=== PATIENT | male | born 1980 | race Caucasian/White ===

== ENCOUNTER 2018-01-30 19:22 | Emergency (ER) | payer SELFPAY ==
[~2018-01-30] VITALS: Ht 165.1 cm; Wt 86.2 kg
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
--- OUTSIDE RECORDS SUMMARY | 2018-01-30 19:30 | XMS REPORT ---
Author Author NAJMA BLANTON Organization [facility] Address [address] [place] [address] Care Team Providers Care Multifold Operator Name Role Phone NAJMA BLANTON Unavailable PROBLEMS Type Condition ICD9-CM Code [id number] Code Onset Dates Condition Status SNOMED Code Problem Opioid use disorder, severe, dependence F11.20 Active 73469927 Problem Anxiety disorder, unspecified F41.9 Active 937188527 Problem Ankylosing spondylitis M45.9 Active 8319569 Problem Ankylosing spondylitis of multiple sites in spine M45.0 Active 0857022 Problem Anxiety 300.00 Active 82411413 ALLERGIES No Information ENCOUNTERS Encounter Location Date Diagnosis [facility] [id number] [place] [address] 41653- 2846 Dec, [facility] [id number] [place] [address] 20324- 6979 Dec, [facility] [id number] [place] [address] 86221- 6407 Dec, Ankylosing spondylitis M45.9 [facility] [id number] [address]- 0355 Dec, [facility] [id number] [place] [address] 19868- 9185 Dec, [facility] [address] [place] [address] 62603- 7426 Dec, Ankylosing spondylitis M45.9 [facility] [address] [place] [address] 12459- 4456 November, Ankylosing spondylitis M45.9 [facility] [id number] [place] [address] 08679- 5588 November, Ankylosing spondylitis M45.9 ; Closed fracture of one rib of right side, initial encounter S22.31XA and Closed fracture of right wrist, initial encounter S62.101A [facility] [id number] [place] [address] 69081- 5600 November, [facility] [id number] [place] [address] 34109- 8147 Oct, [facility] [id number] [place] [address] 84202- 1724 Oct, Anxiety disorder, unspecified F41.9 ; Ankylosing spondylitis of multiple sites in spine M45.0 ; Ankylosing spondylitis M45.9 and Opioid use disorder, severe, dependence F11.20 [facility] [id number] [place] [address] 31496- 9626 Oct, Ankylosing spondylitis M45.9 and Anxiety disorder, unspecified F41.9 [facility] [id number] [place] [address] 05308- 8090 Oct, Ankylosing spondylitis of multiple sites in spine M45.0 [facility] [id number] [place] [address] 48863- 6368 Oct, Ankylosing spondylitis of multiple sites in spine M45.0 [facility] [id number] [place] [address] 63132- 5795 Oct, Ankylosing spondylitis of multiple sites in spine M45.0 [facility] [id number] [place] [address] 21459- 1641 Sep, [facility] [id number] [place] [address] 43535- 2286 Sep, Ankylosing spondylitis of multiple sites in spine M45.0 [facility] [id number] [place] [address] 42674- 4813 Aug, Ankylosing spondylitis of multiple sites in spine M45.0 [facility] [id number] [address]- 1680 Jul, Ankylosing spondylitis of multiple sites in spine M45.0 [facility] [id number] [address]- 8666 Jun, Ankylosing spondylitis of multiple sites in spine M45.0 [facility] [address] [address] 2546 15 May, 2017 Ankylosing spondylitis of multiple sites in spine M45.0 [facility] [id number] [address]- 6276 14 May, 2017 [facility] [id number] [place] [address] 189804- 1125 Apr, Ankylosing spondylitis of multiple sites in spine M45.0 and Cellulitis of leg, right L03.115 [facility] [id number] [address]- 4740 Apr, Ankylosing spondylitis of multiple sites in spine M45.0 [facility] [address] [address]- 8650 Mar, Ankylosing spondylitis of multiple sites in spine M45.0 [facility] [address] [address]- 2586 09 Apr, 2015 [facility] [address] [address]- 2379 08 Apr, 2015 Ankylosing spondylitis M45.9 [facility] [address] [address] 2546 07 Apr, 2015 Ankylosing spondylitis M45.9 [facility] [id number] [address]- 4216 Apr, [facility] [address] [address] 2546 30 Mar, 2015 [facility] [id number] [address]- 2546 Mar, [facility] [address] [facility] [id number] [address]- 9660 Mar, Ankylosing spondylitis 720.0 and Anxiety 300.00 [facility] [id number] [address]- 2546 Oct, [facility] [id number] [address] 2546 Oct, [facility] [address] [address]- 2546 Apr, [facility] [address] [address] 2546 Sep, [facility] [id number] [address]- 2546 Apr, IMMUNIZATIONS No Known Immunizations SOCIAL HISTORY Never Assessed REASON FOR VISIT Controlled Med Refill 07/11/17 PLAN OF CARE VITAL SIGNS MEDICATIONS Medication Instructions Dosage Frequency Start Date End Date Duration Status Morphine Sulfate ER 60 mg Orally every 12 hrs 1 tablet 12h Jun, 28 days Active Oxycodone HCl 20 mg Orally every 6 hrs 1 tablet as needed 6h Jun, 28 days Active RESULTS No Results PROCEDURES [...]
--- OUTSIDE RECORDS SUMMARY | 2018-01-30 19:30 | XMS REPORT ---
Author Author NAJMA BLANTON Organization [facility] Address [address] [place] [address] Care Team Providers Care Hypoid Gear Tester Name Role Phone NAJMA BLANTON Unavailable PROBLEMS Type Condition ICD9-CM Code WPN46-NC Code Onset Dates Condition Status SNOMED Code Problem Opioid use disorder, severe, dependence F11.20 Active 85835802 Problem Anxiety disorder, unspecified F41.9 Active 610979602 Problem Ankylosing spondylitis M45.9 Active 6236420 Problem Ankylosing spondylitis of multiple sites in spine M45.0 Active 7627850 Problem Anxiety 300.00 Active 76050210 ALLERGIES No Information ENCOUNTERS Encounter Location Date Diagnosis [place] [id number] [place] [address] 83695- 2952 Dec, [place] [id number] [place] [address] 56342- 0734 November, Ankylosing spondylitis M45.9 [place] [id number] [place] [address] 69487- 2638 November, Ankylosing spondylitis M45.9 ; Closed fracture of one rib of right side, initial encounter S22.31XA and Closed fracture of right wrist, initial encounter S62.101A [place] [address] [place] [address] 92923- 1535 November, [place] [address] [place] [address] 90933- 2004 Oct, [place] [id number] [place] [address] 33714- 2714 Oct, Anxiety disorder, unspecified F41.9 ; Ankylosing spondylitis of multiple sites in spine M45.0 ; Ankylosing spondylitis M45.9 and Opioid use disorder, severe, dependence F11.20 [facility] [address] [address]- 8603 18 Oct, 2017 Ankylosing spondylitis M45.9 and Anxiety disorder, unspecified F41.9 [facility] [address] [address]- 6776 06 Oct, 2017 Ankylosing spondylitis of multiple sites in spine M45.0 [facility] [id number] [place] [address] 19020- 4673 05 Oct, 2017 Ankylosing spondylitis of multiple sites in spine M45.0 [facility] [id number] [place] [address] 27587- 6171 Oct, Ankylosing spondylitis of multiple sites in spine M45.0 [facility] [id number] [place] [address] 48819- 5879 Sep, [facility] [id number] [place] [address] 90484- 1143 Sep, Ankylosing spondylitis of multiple sites in spine M45.0 [facility] [id number] [place] [address] 88736- 8732 Aug, Ankylosing spondylitis of multiple sites in spine M45.0 [facility] [address] [place] [address] 91910- 9225 Jul, Ankylosing spondylitis of multiple sites in spine M45.0 [facility] [id number] [place] [address] 55106- 3481 Jun, Ankylosing spondylitis of multiple sites in spine M45.0 [facility] [address] [address]- 2706 15 May, 2017 Ankylosing spondylitis of multiple sites in spine M45.0 [facility] [address] [address]- 8181 14 May, 2017 [facility] [id number] [place] [address] 55972- 2123 Apr, Ankylosing spondylitis of multiple sites in spine M45.0 and Cellulitis of leg, right L03.115 [facility] [id number] [place] [address] 87947- 2385 Apr, Ankylosing spondylitis of multiple sites in spine M45.0 [facility] [address] [address]- 2462 Mar, Ankylosing spondylitis of multiple sites in spine M45.0 [facility] [id number] [place] [address] 14573- 4150 Apr, [facility] [id number] [place] [address] 83758- 5308 Apr, Ankylosing spondylitis M45.9 [facility] [id number] [place] [address] 60277- 1485 Apr, Ankylosing spondylitis M45.9 [facility] [id number] [place] [address] 82267- 1918 Apr, [facility] [id number] [place] [address] 99314- 4683 30 Mar, 2015 [facility] [id number] [place] [address] 77702- 2589 28 Mar, 2015 [facility] [id number] [address]- 9864 25 Mar, 2015 Ankylosing spondylitis 720.0 and Anxiety 300.00 [facility] [id number] [address]- 0627 14 Oct, 2014 [facility] [id number] [place] [address] 30203- 3335 Oct, [facility] [id number] [address]- 0764 04 Apr, 2013 [facility] [id number] [place] [address] 53162- 6959 Sep, [facility] [address] [facility] [id number] [place] [address]- 1879 Apr, IMMUNIZATIONS No Known Immunizations SOCIAL HISTORY Never Assessed REASON FOR VISIT medication PLAN OF CARE VITAL SIGNS MEDICATIONS Unknown Medications RESULTS No Results PROCEDURES No Known procedures [...]
--- OUTSIDE RECORDS SUMMARY | 2018-01-30 19:30 | XMS REPORT ---
Author Author SPENCER LEDESMA [facility] eClinicalWorks Address Unknown Phone Unavailable Care Team Providers Care Cribber Name Role Phone SPENCER LEDESMA Unavailable Allergies No Known Allergies Problems Problem Type Condition Code Onset Dates Condition Status Problem Anxiety 300.00 Active Problem Ankylosing spondylitis M45.9 Active Problem Ankylosing spondylitis 720.0 Active Problem Other specified disease of hair and hair follicles 704.8 Active Medications No Known Medications Results No Known Results Summary Purpose eClinicalWorks Submission
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
--- OUTSIDE RECORDS SUMMARY | 2018-01-30 19:30 | XMS REPORT ---
Author Author SPENCER LEDESMA [facility] eClinicalWorks Address Unknown Phone Unavailable Care Team Providers Care Hide Grader Name Role Phone SPENCER LEDESMA Unavailable Allergies No Known Allergies Problems Problem Type Condition Code Onset Dates Condition Status Problem Anxiety 300.00 Active Problem Ankylosing spondylitis M45.9 Active Problem Ankylosing spondylitis 720.0 Active Problem Other specified disease of hair and hair follicles 704.8 Active Medications No Known Medications Results No Known Results Summary Purpose eClinicalWorks Submission
--- OUTSIDE RECORDS SUMMARY | 2018-01-30 19:30 | XMS REPORT ---
Author Author NAJMA BLANTON Organization [facility] Address [address] [place] [address] Care Team Providers Care Collection Coordinator Name Role Phone NAJMA BLANTON Unavailable PROBLEMS Type Condition ICD9-CM Code [id number] Code Onset Dates Condition Status SNOMED Code Problem Opioid use disorder, severe, dependence F11.20 Active 10931707 Problem Anxiety disorder, unspecified F41.9 Active 993263615 Problem Ankylosing spondylitis M45.9 Active 5830902 Problem Ankylosing spondylitis of multiple sites in spine M45.0 Active 3274084 Problem Anxiety 300.00 Active 06214241 ALLERGIES No Information ENCOUNTERS Encounter Location Date Diagnosis [facility] [id number] [place] [address]11[address] 5185 Jan, [facility] [id number] [place] [address] 80293- 2076 Dec, [facility] [id number] [place] [address] 65994- 7803 Dec, Ankylosing spondylitis M45.9 [facility] [id number] [address] 3337 Dec, [facility] [id number] [place] [address] 16623- 0608 15 Dec, 2017 [facility] [id number] [place] [address] 77420- 9353 14 Dec, 2017 Ankylosing spondylitis M45.9 [facility] [id number] [place] [address] 09115- 8257 08 Dec, 2017 Ankylosing spondylitis M45.9 [facility] [id number] [place] [address] 32855- 8219 Dec, [facility] [address], [place] [address]- 8197 Dec, [facility] [address] [place] [address] 74533- 4110 Dec, [facility] [address], [place] [address]- 7437 Dec, Ankylosing spondylitis M45.9 [facility] [id number] [address]- 2552 Dec, Ankylosing spondylitis M45.9 [facility] [address] [place] [address] 04859- 9410 Dec, Ankylosing spondylitis M45.9 [facility] [address] [place] [address] 48086- 7385 Dec, Ankylosing spondylitis M45.9 [facility] [address], [place] [address]- 7518 November, Ankylosing spondylitis M45.9 [facility] [address], [place] [address] 8664 November, Ankylosing spondylitis M45.9 ; Closed fracture of one rib of right side, initial encounter S22.31XA and Closed fracture of right wrist, initial encounter S62.101A [facility] [address], [place] [address]- 8103 November, [facility] [address], [place] [address]- 8199 Oct, [facility] [address], [place] [address]- 1879 Oct, Anxiety disorder, unspecified F41.9 ; Ankylosing spondylitis of multiple sites in spine M45.0 ; Ankylosing spondylitis M45.9 and Opioid use disorder, severe, dependence F11.20 [facility] [address], [place] [address]- 7888 18 Oct, 2017 Ankylosing spondylitis M45.9 and Anxiety disorder, unspecified F41.9 [facility] [address] [place] [address] 97131- 5093 06 Oct, 2017 Ankylosing spondylitis of multiple sites in spine M45.0 [facility] [address], [place] [address]- 8663 Oct, Ankylosing spondylitis of multiple sites in spine M45.0 [facility] [id number] [place] [address] 65010- 5479 Oct, Ankylosing spondylitis of multiple sites in spine M45.0 [facility] [id number] [place] [address] 78446- 6009 Sep, [facility] [id number] [place] [address] 83449- 9523 Sep, Ankylosing spondylitis of multiple sites in spine M45.0 [facility] [id number] [place] [address] 70762- 7547 Aug, Ankylosing spondylitis of multiple sites in spine M45.0 [facility] [address] [place] [address] 54303- 1044 Jul, Ankylosing spondylitis of multiple sites in spine M45.0 [facility] [address], [place] [address]- 7708 Jun, Ankylosing spondylitis of multiple sites in spine M45.0 [facility] [address], [place] [address]- 4385 15 May, 2017 Ankylosing spondylitis of multiple sites in spine M45.0 [facility] [id number] [address]- 4674 14 May, 2017 [facility] [address], [place] [address]- 3757 Apr, Ankylosing spondylitis of multiple sites in spine M45.0 and Cellulitis of leg, right L03.115 [facility] [address], [place] [address]- 8784 19 Apr, 2017 Ankylosing spondylitis of multiple sites in spine M45.0 [facility] [address], [place] [address]- 8976 22 Mar, 2017 Ankylosing spondylitis of multiple sites in spine M45.0 [facility] [id number] [place] [address] 88076- 3956 Apr, [facility] [id number] [place] [address] 53939- 1395 Apr, Ankylosing spondylitis M45.9 [facility] [id number] [place] [address] 25298- 5714 Apr, Ankylosing spondylitis M45.9 [facility] [id number] [place] [address] 66719- 7496 Apr, [facility] [id number], [place] [address]- 2175 30 Mar, 2015 [facility] [id number] [place] [address] 17953- 4656 28 Mar, 2015 [facility] [id number] [address]- 0576 25 Mar, 2015 Ankylosing spondylitis 720.0 and Anxiety 300.00 [facility] [address], [place] [address]- 3909 14 Oct, 2014 [facility] [address], [place] [address]- 2540 13 Oct, 2014 [facility] [id number] [place] [address] 87676- 7316 04 Apr, 2013 [facility] [id number], [place] [address]- 2548 05 Sep, 2011 [facility] [id number] [place] [address] 94090- 1005 Apr, IMMUNIZATIONS No Known Immunizations SOCIAL HISTORY Never Assessed REASON FOR VISIT Controlled Med Refill 09/05/17 PLAN OF CARE VITAL SIGNS MEDICATIONS Medication Instructions Dosage Frequency Start Date End Date Duration Status Morphine Sulfate ER 60 mg Orally every 12 hrs 1 tablet 12h Aug, 28 days Active Oxycodone HCl 20 mg Orally every 6 hrs 1 tablet as needed 6h Aug, 28 days Active RESULTS No Results PROCEDURES [...]
--- OUTSIDE RECORDS SUMMARY | 2018-01-30 19:30 | XMS REPORT ---
Author Author SPENCER LEDESMA [facility] eClinicalWorks Address Unknown Phone Unavailable Care Team Providers Care Electrical Automation Engineer Name Role Phone SPENCER LEDESMA Unavailable Allergies No Known Allergies Problems Problem Type Condition Code Onset Dates Condition Status Problem Ankylosing spondylitis M45.9 Active Assessment Ankylosing spondylitis M45.9 Active Problem Anxiety 300.00 Active Medications No Known Medications Results No Known Results Summary Purpose eClinicalWorks Submission
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
--- OUTSIDE RECORDS SUMMARY | 2018-01-30 19:31 | XMS REPORT ---
Author Author SPENCER LEDESMA [facility] eClinicalWorks Address Unknown Phone Unavailable Care Team Providers Care Engagement Manager Name Role Phone SPENCER LEDESMA Unavailable Allergies No Known Allergies Problems Problem Type Condition Code Onset Dates Condition Status Problem Ankylosing spondylitis M45.9 Active Problem Anxiety 300.00 Active Medications No Known Medications Results No Known Results Summary Purpose eClinicalWorks Submission
[2018-01-30] MEDS ORDERED: OXYC-529 (19:40)
[2018-01-30] MEDS ORDERED: METH500T7 (19:40)
[2018-01-30] MEDS ORDERED: AMOX1TAB12 (19:40)
[2018-01-30] MEDS ORDERED: CHLO473M (19:40)
[2018-01-30] MEDS ORDERED: NS IV 1000 ML 1,000 ML IV SCH (19:50)
[2018-01-30] MEDS ORDERED: fentaNYL INJECTION 100 MCG/2 ML AMP IVP STA (20:16)
[2018-01-30 20:25] LABS: BASOPHILS % (AUTO) 0 % (0-10); EOSINOPHILS # (AUTO) 0.2 10^3/uL (0.0-0.3); EOSINOPHILS % (AUTO) 1 % (0-10); HEMATOCRIT 33 % (40-54); HEMOGLOBIN 10.9 G/DL (13.3-17.7); LYMPHOCYTES # (AUTO) 2.9 X 10^3 (1.0-4.0); LYMPHOCYTES % (AUTO) 18 % (12-44); MEAN CORPUSCULAR HEMOGLOBIN 29 PG (25-34); MEAN CORPUSCULAR HGB CONC 33 G/DL (32-36); MEAN CORPUSCULAR VOLUME 87 FL (80-99); MEAN PLATELET VOLUME 10.1 FL (7.4-10.4); MONOCYTES # (AUTO) 1.3 X 10^3 (0.0-1.0); MONOCYTES % (AUTO) 8 % (0-12); NEUTROPHILS # (AUTO) 11.7 X 10^3 (1.8-7.8); NEUTROPHILS % (AUTO) 72 % (42-75); PLATELET COUNT 443 10^3/uL (130-400); RED BLOOD COUNT 3.77 10^6/uL (4.35-5.85); RED CELL DISTRIBUTION WIDTH 14.7 % (10.0-14.5); WHITE BLOOD COUNT 16.2 10^3/uL (4.3-11.0)
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
--- NOTE | 2018-01-30 20:41 | Diagnostic Imaging Report ---
INDICATION: Status post neck and jaw surgery, now with swelling in face. EXAMINATION: Frontal chest was obtained at 8:20 p.m. FINDINGS: Heart and mediastinal silhouette are normal in appearance. The lungs appear clear. There is no pneumothorax or pleural fluid. There are old right-sided rib fractures. Tracheostomy tube is seen with tip overlying the mid trachea. IMPRESSION: Tracheotomy tube tip overlies the mid trachea. No focal infiltrate, pneumothorax or pleural fluid. Old right-sided rib fractures are noted. Dictated by: Dictated on workstation # [id number]
[2018-01-30 20:49] LABS: BAND NEUTROPHILS 0 %; INR 1.1 (0.8-1.4); LYMPHOCYTES % (MANUAL) 22 %; NEUTROPHILS % (MANUAL) 72 %; PROTHROMBIN TIME PATIENT 14.2 SEC (12.2-14.7)
[2018-01-30 20:50] LABS: BASOPHILS % (MANUAL) 1 %; EOSINOPHILS % (MANUAL) 0 %; MONOCYTES % (MANUAL) 5 %; RBC MORPH NORMAL
[2018-01-30 21:02] LABS: ALANINE AMINOTRANSFERASE 30 U/L (0-55); ALBUMIN 3.9 GM/DL (3.2-4.5); ALKALINE PHOSPHATASE 89 U/L (40-136); BILIRUBIN,TOTAL 0.3 MG/DL (0.1-1.0); BUN/CREATININE RATIO 15; CALCIUM 9.2 MG/DL (8.5-10.1); CARBON DIOXIDE 24 MMOL/L (21-32); CHLORIDE 104 MMOL/L (98-107); CREATININE SERUM 0.78 MG/DL (0.60-1.30); GFR ESTIMATED > 60; GLUCOSE 82 MG/DL (70-105); SODIUM 140 MMOL/L (135-145); TOTAL PROTEIN 7.4 GM/DL (6.4-8.2)
[2018-01-30] MEDS ORDERED: cefTRIAXone INJECTION 2,000 MG in NS (IVPB) 50 ML IV ONE (21:15)
[2018-01-30] MEDS ORDERED: RX-TRIMETH/SULFA. 160-800 MG (BACTRIM DS) TAB PPK#2 PO STA (21:38)
[2018-01-30] MEDS ORDERED: RX-CLINDAMYCIN 150 MG (CLEOCIN) CAP PPK#4 PO STA (21:38)
[2018-01-30] MEDS ORDERED: CLIN300C11 PO (21:53)
[2018-01-30] MEDS ORDERED: SULF1TAB35 PO (21:53)
[2018-01-30 21:56] VITALS: BP 125/72
[2018-01-30] MEDS ORDERED: OXYC-464 PO (22:02)
== END 2018-01-30 22:03 | disposition home or self-care (01) ==
LOC: EDUNIT# 19:22 → ER 19:26
DX: T84.7XXA Infection and inflammatory reaction due to other internal orthopedic prosthetic devices, implants and grafts, initial encounter (principal); M45.9 Ankylosing spondylitis of unspecified sites in spine; F17.210 Nicotine dependence, cigarettes, uncomplicated; Z88.8 Allergy status to other drugs, medicaments and biological substances; Z87.828 Personal history of other (healed) physical injury and trauma
CPT/HCPCS: 36415; 71045; 80053; 83605; 85007; 85027; 85610; 85730; 86141; 87040; 87070; 87077; 87186; 87205; 96361; 96365; 96375

== ENCOUNTER 2018-02-18 15:56 | Emergency (ER) | payer SELFPAY ==
[~2018-02-18] VITALS: Ht 175.3 cm; Wt 90.7 kg
[~2018-02-18 15:56] MED LIST: AMOX1TAB12; CHLO473M; CLIN300C11 PO; METH500T7; OXYC-464 PO; OXYC-529; SULF1TAB35 PO
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
--- OUTSIDE RECORDS SUMMARY | 2018-02-18 16:01 | XMS REPORT ---
Author Author SPENCER LEDESMA [facility] eClinicalWorks Address Unknown Phone Unavailable Care Team Providers Care Plug Drill Operator Name Role Phone SPENCER LEDESMA Unavailable Allergies No Known Allergies Problems Problem Type Condition Code Onset Dates Condition Status Problem Ankylosing spondylitis M45.9 Active Assessment Ankylosing spondylitis M45.9 Active Problem Anxiety 300.00 Active Medications Medication Code System Code Instructions Start Date End Date Status Dosage Cyclobenzaprine HCl [facility] [address]-69 10 MG Orally qhs 1 tablet Baclofen [facility] [address]-56 10 MG Orally 2 times a day 1/2 tablet with food or milk Results No Known Results Summary Purpose eClinicalWorks Submission
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
[2018-02-18 16:36] VITALS: BP 133/95
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
== END 2018-02-18 16:36 | disposition left against medical advice (07) ==
LOC: EDUNIT# 15:56 → ER 15:57
DX: G89.29 Other chronic pain (principal); F19.10 Other psychoactive substance abuse, uncomplicated; Z88.6 Allergy status to analgesic agent; Z98.890 Other specified postprocedural states
CPT/HCPCS: 99281

== ENCOUNTER 2018-04-20 08:26 | Emergency (ER) | payer MEDICAID, OTHER ==
[~2018-04-20] VITALS: Ht 177.8 cm; Wt 86.2 kg
--- OUTSIDE RECORDS SUMMARY | 2018-04-20 08:31 | XMS REPORT ---
Author Author NAJMA BLANTON Organization [facility] Address [address] [place] [address] Care Team Providers Care Manager Managing Name Role Phone NAJMA BLANTON Unavailable PROBLEMS Type Condition ICD9-CM Code VTH12-XZ Code Onset Dates Condition Status SNOMED Code Problem Encounter for attention to tracheostomy Z43.0 Active 479887360 Problem Opioid use disorder, severe, dependence F11.20 Active 68120848 Problem Anxiety 300.00 Active 30975542 Problem Ankylosing spondylitis M45.9 Active 8493481 Problem Anxiety disorder, unspecified F41.9 Active 299000982 Problem Ankylosing spondylitis of multiple sites in spine M45.0 Active 3844464 ALLERGIES No Information ENCOUNTERS Encounter Location Date Diagnosis [facility] [id number] [place] [address] 55429- 6190 Jan, [facility] [id number] [place] [address] 41982- 2809 Jan, Encounter for attention to tracheostomy Z43.0 [facility] [id number] [place] [address] 97375- 5717 Jan, [facility] [id number] [place] [address] 89342 -4061 Jan, [facility] [id number] [place] [address] 11660- 2642 Jan, [facility] [address] [address]- 8047 Jan, [facility] [id number] [place] [address] 47001- 0182 Dec, [facility] [id number] [place] [address] 99623- 1285 Dec, Ankylosing spondylitis M45.9 [facility] [address] [facility] [id number], [place] [address]- 6616 Dec, [facility] [address] [facility] [id number], [place] [address]- 5136 Dec, [facility] [address] [facility] [id number], [place] [address]- 3436 Dec, Ankylosing spondylitis M45.9 [facility] [address] [facility] [id number], [place] [address]- 6656 Dec, Ankylosing spondylitis M45.9 [facility] [address] [facility] [id number] [place] [address]- 9706 Dec, [facility] [address] [facility] [id number], [place] [address]- 9566 Dec, [facility] [address], [place] [address]- 7726 Dec, [facility] [address] [facility] [id number], [place] [address]- 7367 Dec, Ankylosing spondylitis M45.9 [facility] [address] [facility] [id number], [place] [address]- 7226 Dec, Ankylosing spondylitis M45.9 [facility] [id number], [place] [address]- 3546 Dec, Ankylosing spondylitis M45.9 [facility] [address] [facility] [id number], [place] [address] 2546 Dec, Ankylosing spondylitis M45.9 [facility] [id number], [place] [address]- 3906 November, Ankylosing spondylitis M45.9 [facility] [address] [facility] [id number], [place] [address]- 3068 November, Ankylosing spondylitis M45.9 ; Closed fracture of one rib of right side, initial encounter S22.31XA and Closed fracture of right wrist, initial encounter S62.101A [facility] [address] [place] [address] 85744- 6985 November, [facility] [id number] [place] [address] 63904- 0454 Oct, [facility] [id number] [place] [address] 13939- 9099 Oct, Anxiety disorder, unspecified F41.9 ; Ankylosing spondylitis of multiple sites in spine M45.0 ; Ankylosing spondylitis M45.9 and Opioid use disorder, severe, dependence F11.20 [facility] [id number] [place] [address] 83804- 1938 Oct, Ankylosing spondylitis M45.9 and Anxiety disorder, unspecified F41.9 [facility] [id number] [place] [address] 22594- 3043 Oct, Ankylosing spondylitis of multiple sites in spine M45.0 [facility] [id number] [place] [address] 80137- 3174 Oct, Ankylosing spondylitis of multiple sites in spine M45.0 [facility] [id number] [place] [address] 90009- 2463 Oct, Ankylosing spondylitis of multiple sites in spine M45.0 [facility] [id number], [place] [address]- 0292 Sep, [facility] [id number] [place] [address] 32369- 2828 Sep, Ankylosing spondylitis of multiple sites in spine M45.0 [facility] [id number] [place] [address] 53564- 9040 Aug, Ankylosing spondylitis of multiple sites in spine M45.0 [facility] [id number] [place] [address] 52501- 2494 Jul, Ankylosing spondylitis of multiple sites in spine M45.0 [facility] [address], [place] [address]- 6406 13 Jun, 2017 Ankylosing spondylitis of multiple sites in spine M45.0 [facility] [address], [place] [address]- 4816 15 May, 2017 Ankylosing spondylitis of multiple sites in spine M45.0 [facility] [id number], [place] [address]- 7281 14 May, 2017 [facility] [address], [place] [address]- 0517 Apr, Ankylosing spondylitis of multiple sites in spine M45.0 and Cellulitis of leg, right L03.115 [facility] [address], [place] [address]- 0167 Apr, Ankylosing spondylitis of multiple sites in spine M45.0 [facility] [address], [place] [address]- 1923 22 Mar, 2017 Ankylosing spondylitis of multiple sites in spine M45.0 [facility] [address], [place] [address]- 3789 09 Apr, 2015 [facility] [address], [place] [address]- 8523 08 Apr, 2015 Ankylosing spondylitis M45.9 [facility] [address], [place] [address]- 9122 07 Apr, 2015 Ankylosing spondylitis M45.9 [facility] [address] 3526 Apr, [facility] [address] [address]76 30 Mar, 2015 [facility] [address], [place] [address]- 2676 28 Mar, 2015 [facility] [address], [place] [address]- 9707 Mar, Ankylosing spondylitis 720.0 and Anxiety 300.00 [facility] [address] [address]1 Oct, [facility] [address] 7443 Oct, [facility] [id number] [place] [address] 576702- 0638 Apr, [facility] [address], [place] [address]- 9366 Sep, [facility] [address] [address] [address]13 Apr, IMMUNIZATIONS No Known Immunizations SOCIAL HISTORY Never Assessed REASON FOR VISIT trach supplies PLAN OF CARE VITAL SIGNS MEDICATIONS Unknown [...]
--- OUTSIDE RECORDS SUMMARY | 2018-04-20 08:31 | XMS REPORT ---
Author Author ANSLEY EARL [facility] Address [address] [place] [address] Care Team Providers Care Legal Support Assistant Name Role Phone ANSLEY EARL Unavailable PROBLEMS Type Condition ICD9-CM Code VNO19-DO Code Onset Dates Condition Status SNOMED Code Problem Encounter for attention to tracheostomy Z43.0 Active 228221976 Problem Opioid use disorder, severe, dependence F11.20 Active 08626603 Problem Anxiety 300.00 Active 31495179 Problem Ankylosing spondylitis M45.9 Active 5427790 Problem Anxiety disorder, unspecified F41.9 Active 840157494 Problem Ankylosing spondylitis of multiple sites in spine M45.0 Active 0761508 ALLERGIES No Information ENCOUNTERS Encounter Location Date Diagnosis [facility] [place] [id number] [place] [address] 89375- 8727 Jan, [facility] [place] [id number] [place] [address] 52806- 2681 Jan, Encounter for attention to tracheostomy Z43.0 [facility] [place] [id number] [place] [address] 10662- 6013 Jan, [facility] [id number] [place] [address] 92832 -8759 Jan, [facility] [place] [id number] [place] [address] 00541- 5728 Jan, [facility] [place] [address] [address]- 5664 Jan, [facility] [place] [id number] [place] [address] 98361- 9002 Dec, [facility] [place] [id number] [place] [address] 61495- 0785 Dec, Ankylosing spondylitis M45.9 [facility] [place] [address] [facility] [id number], [place] [address]- 5126 Dec, [facility] [place] [address] [facility] [id number], [place] [address]- 6696 Dec, [facility] [place] [address] [facility] [id number], [place] [address]- 1506 Dec, Ankylosing spondylitis M45.9 [facility] [place] [address] [facility] [id number], [place] [address] 2546 Dec, Ankylosing spondylitis M45.9 [facility] [place] [address] [facility] [id number] [place] [address] 8646 Dec, [facility] [place] [address] [facility] [id number], [place] [address]- 6443 Dec, [facility] [place] [address] [id number], [place] [address]- 8899 Dec, [facility] [place] [address] [facility] [id number], [place] [address]- 2513 Dec, Ankylosing spondylitis M45.9 [facility] [place] [address] [facility] [id number], [place] [address]- 7042 Dec, Ankylosing spondylitis M45.9 [facility] [place] [address] [facility] [id number], [place] [address]- 5684 Dec, Ankylosing spondylitis M45.9 [facility] [place] [address] [facility] [id number], [place] [address]- 9289 Dec, Ankylosing spondylitis M45.9 [facility] [place] [address] [facility] [id number], [place] [address]- 7741 November, Ankylosing spondylitis M45.9 [facility] [place] [address] [facility] [id number], [place] [address]- 9824 November, Ankylosing spondylitis M45.9 ; Closed fracture of one rib of right side, initial encounter S22.31XA and Closed fracture of right wrist, initial encounter S62.101A [facility] [place] [id number] [place] [address] 71102- 6662 November, [facility] [place] [id number] [place] [address] 39591- 6904 Oct, [facility] [place] [id number] [place] [address] 21147- 4603 Oct, Anxiety disorder, unspecified F41.9 ; Ankylosing spondylitis of multiple sites in spine M45.0 ; Ankylosing spondylitis M45.9 and Opioid use disorder, severe, dependence F11.20 [facility] [place] [id number] [place] [address] 22445- 1303 Oct, Ankylosing spondylitis M45.9 and Anxiety disorder, unspecified F41.9 [facility] [place] [id number] [place] [address] 51303- 7095 Oct, Ankylosing spondylitis of multiple sites in spine M45.0 [facility] [place] [id number] [place] [address] 90191- 9879 Oct, Ankylosing spondylitis of multiple sites in spine M45.0 [facility] [place] [id number] [place] [address] 60696- 0430 Oct, Ankylosing spondylitis of multiple sites in spine M45.0 [facility] [place] [address]65[address], [place] [address]- 3186 Sep, [facility] [place] [id number] [place] [address] 08067- 2180 Sep, Ankylosing spondylitis of multiple sites in spine M45.0 [facility] [place] [id number] [place] [address] 55594- 8774 Aug, Ankylosing spondylitis of multiple sites in spine M45.0 [facility] [place] [id number] [place] [address] 82095- 3715 Jul, Ankylosing spondylitis of multiple sites in spine M45.0 [facility] [place] [address]65100[place], [place] [address]- 3208 13 Jun, 2017 Ankylosing spondylitis of multiple sites in spine M45.0 [facility] [place] [address]65[address], [place] [address]- 7726 15 May, 2017 Ankylosing spondylitis of multiple sites in spine M45.0 [facility] [place] [id number] [address]- 9669 14 May, 2017 [facility] [place] [id number] [address]- 5296 Apr, Ankylosing spondylitis of multiple sites in spine M45.0 and Cellulitis of leg, right L03.115 [facility] [place] [address]65100[place], [place] [address]- 5890 Apr, Ankylosing spondylitis of multiple sites in spine M45.0 [facility] [place] [address]65[address], [place] [address]- 7536 Mar, Ankylosing spondylitis of multiple sites in spine M45.0 [facility] [place] [address]65[address], [place] [address]- 7099 09 Apr, 2015 [facility] [place] [address], [place] [address]- 7474 08 Apr, 2015 Ankylosing spondylitis M45.9 [facility] [place] [address], [place] [address]- 1130 07 Apr, 2015 Ankylosing spondylitis M45.9 [facility] [place] [id number] 4146 Apr, [facility] [place] [id number] 2863 30 Mar, 2015 [facility] [place] [id number], [place] [address]- 5581 28 Mar, 2015 [facility] [place] [id number] 3275 Mar, Ankylosing spondylitis 720.0 and Anxiety 300.00 [facility] [place] [id number] 2856 Oct, [facility] [place] [id number]- 7782 Oct, [facility] [place] [address] [id number], [place] [address]- 4100 Apr, [facility] [place] [id number], [place] [address]- 1399 Sep, [facility] [place] [id number], [place] [address]- 5678 Apr, IMMUNIZATIONS No Known Immunizations SOCIAL HISTORY Never Assessed REASON FOR VISIT Medical Care Update/Review PLAN OF CARE VITAL SIGNS MEDICATIONS Unknown [...]
--- OUTSIDE RECORDS SUMMARY | 2018-04-20 08:31 | XMS REPORT ---
Author Author NAJMA BLANTON Organization [facility] Address [address] [place] [address] Care Team Providers Care Job Placement Officer Name Role Phone NAJMA BLANTON Unavailable PROBLEMS Type Condition ICD9-CM Code GKW24-BR Code Onset Dates Condition Status SNOMED Code Problem Encounter for attention to tracheostomy Z43.0 Active 643888735 Problem Opioid use disorder, severe, dependence F11.20 Active 46549318 Problem Anxiety 300.00 Active 54291304 Problem Ankylosing spondylitis M45.9 Active 9116000 Problem Anxiety disorder, unspecified F41.9 Active 549629719 Problem Ankylosing spondylitis of multiple sites in spine M45.0 Active 4739535 ALLERGIES No Information ENCOUNTERS Encounter Location Date Diagnosis [facility] [id number] [place] [address] 83713- 6659 Jan, [facility] [id number] [place] [address] 04719- 2693 Jan, Encounter for attention to tracheostomy Z43.0 [facility] [id number] [place] [address] 43094- 2348 Jan, [facility] [id number] [place] [address] 03807 -3567 Jan, [facility] [id number] [place] [address] 71084- 6846 Jan, [facility] [address] 98884- 1382 Jan, [facility] [id number] [place] [address] 18246- 1439 Dec, [facility] [id number] [place] [address] 52584- 8049 Dec, Ankylosing spondylitis M45.9 [facility] [address] [facility] [id number], [place] [address]- 1976 Dec, [facility] [address] [facility] [id number], [place] [address]- 2956 Dec, [facility] [address] [facility] [id number], [place] [address]- 5026 Dec, Ankylosing spondylitis M45.9 [facility] [address] [facility] [id number], [place] [address]- 3706 Dec, Ankylosing spondylitis M45.9 [facility] [address] [facility] [id number] [place] [address]- 1146 Dec, [facility] [address] [facility] [id number], [place] [address]- 2466 Dec, [facility] [address], [place] [address]- 8906 Dec, [facility] [address] [facility] [id number], [place] [address]- 3451 Dec, Ankylosing spondylitis M45.9 [facility] [address] [facility] [id number], [place] [address]- 1716 Dec, Ankylosing spondylitis M45.9 [facility] [address] [id number], [place] [address]- 3736 Dec, Ankylosing spondylitis M45.9 [facility] [address] [facility] [id number], [place] [address] 2546 Dec, Ankylosing spondylitis M45.9 [facility] [address] [id number], [place] [address]- 4786 November, Ankylosing spondylitis M45.9 [facility] [address] [facility] [id number], [place] [address]- 0147 November, Ankylosing spondylitis M45.9 ; Closed fracture of one rib of right side, initial encounter S22.31XA and Closed fracture of right wrist, initial encounter S62.101A [facility] [address] [place] [address] 39181- 9154 November, [facility] [id number] [place] [address] 41022- 3707 Oct, [facility] [id number] [place] [address] 12951- 8910 Oct, Anxiety disorder, unspecified F41.9 ; Ankylosing spondylitis of multiple sites in spine M45.0 ; Ankylosing spondylitis M45.9 and Opioid use disorder, severe, dependence F11.20 [facility] [id number] [place] [address] 82211- 9702 Oct, Ankylosing spondylitis M45.9 and Anxiety disorder, unspecified F41.9 [facility] [id number] [place] [address] 34320- 8915 Oct, Ankylosing spondylitis of multiple sites in spine M45.0 [facility] [id number] [place] [address] 36278- 7422 Oct, Ankylosing spondylitis of multiple sites in spine M45.0 [facility] [id number] [place] [address] 03467- 0394 Oct, Ankylosing spondylitis of multiple sites in spine M45.0 [facility] [address] [id number], [place] [address]- 4578 Sep, [facility] [id number] [place] [address] 56765- 7570 Sep, Ankylosing spondylitis of multiple sites in spine M45.0 [facility] [id number] [place] [address] 76344- 5441 Aug, Ankylosing spondylitis of multiple sites in spine M45.0 [facility] [id number] [place] [address] 12476- 4339 Jul, Ankylosing spondylitis of multiple sites in spine M45.0 [facility] [address], [place] [address]- 7156 13 Jun, 2017 Ankylosing spondylitis of multiple sites in spine M45.0 [facility] [address], [place] [address]- 7916 15 May, 2017 Ankylosing spondylitis of multiple sites in spine M45.0 [facility] [id number] [address]- 7415 14 May, 2017 [facility] [address], [place] [address]- 0331 Apr, Ankylosing spondylitis of multiple sites in spine M45.0 and Cellulitis of leg, right L03.115 [facility] [address], [place] [address]- 3432 Apr, Ankylosing spondylitis of multiple sites in spine M45.0 [facility] [address], [place] [address]- 9203 22 Mar, 2017 Ankylosing spondylitis of multiple sites in spine M45.0 [facility] [address], [place] [address]- 9759 09 Apr, 2015 [facility] [address], [place] [address]- 9887 08 Apr, 2015 Ankylosing spondylitis M45.9 [facility] [address], [place] [address]- 7155 07 Apr, 2015 Ankylosing spondylitis M45.9 [facility] [address]- 0126 Apr, [facility] [address]- 3686 30 Mar, 2015 [facility] [address], [place] [address]- 2696 28 Mar, 2015 [facility] [address], [place] [address]- 9279 Mar, Ankylosing spondylitis 720.0 and Anxiety 300.00 [facility] [address], [place] [address]- 8090 Oct, [facility] [address], [place] [address]- 0191 Oct, [facility] [id number] [place] [address] 044202- 6960 Apr, [facility] [address], [place] [address]- 2870 Sep, [facility] [address] [address]- 8710 Apr, IMMUNIZATIONS No Known Immunizations SOCIAL HISTORY Never Assessed REASON FOR VISIT fyi PLAN OF CARE VITAL SIGNS MEDICATIONS Unknown [...]
--- OUTSIDE RECORDS SUMMARY | 2018-04-20 08:31 | XMS REPORT ---
Author Author NAJMA BLANTON Organization [facility] Address [address] [place] [address] Care Team Providers Care Mannequin Mounter Name Role Phone NAJMA BLANTON Unavailable PROBLEMS Type Condition ICD9-CM Code OSO95-SO Code Onset Dates Condition Status SNOMED Code Problem Encounter for attention to tracheostomy Z43.0 Active 533577828 Problem Opioid use disorder, severe, dependence F11.20 Active 85144156 Problem Anxiety 300.00 Active 97202328 Problem Ankylosing spondylitis M45.9 Active 8960303 Problem Anxiety disorder, unspecified F41.9 Active 716237347 Problem Ankylosing spondylitis of multiple sites in spine M45.0 Active 8381308 ALLERGIES No Information ENCOUNTERS Encounter Location Date Diagnosis [facility] [id number] [place] [address] 78501- 3185 Jan, [facility] [id number] [place] [address] 81541- 0914 Jan, Encounter for attention to tracheostomy Z43.0 [facility] [id number] [place] [address] 59425- 7436 Jan, [facility] [id number] [place] [address] 61836 -8363 Jan, [facility] [id number] [place] [address] 87215- 9430 Jan, [facility] [address] [address]- 1631 Jan, [facility] [id number] [place] [address] 94267- 2925 Dec, [facility] [id number] [place] [address] 74579- 6578 Dec, Ankylosing spondylitis M45.9 [facility] [address] [facility] [id number], [place] [address] 4906 Dec, [facility] [address] [facility] [id number], [place] [address]- 7706 Dec, [facility] [address] [facility] [id number], [place] [address]- 6096 Dec, Ankylosing spondylitis M45.9 [facility] [address] [facility] [id number], [place] [address]- 6906 Dec, Ankylosing spondylitis M45.9 [facility] [address] [facility] [id number] [place] [address]- 1346 Dec, [facility] [address] [facility] [id number], [place] [address]- 7226 Dec, [facility] [address] [address]- 4[address] Dec, [facility] [address] [facility] [id number], [place] [address]- 7717 Dec, Ankylosing spondylitis M45.9 [facility] [address] [facility] [id number], [place] [address]- 5576 Dec, Ankylosing spondylitis M45.9 [facility] [id number] [address]- 0046 Dec, Ankylosing spondylitis M45.9 [facility] [address] [facility] [id number], [place] [address] 2546 Dec, Ankylosing spondylitis M45.9 [facility] [address] [id number] [address]- 1796 November, Ankylosing spondylitis M45.9 [facility] [address] [facility] [id number], [place] [address]- 2200 November, Ankylosing spondylitis M45.9 ; Closed fracture of one rib of right side, initial encounter S22.31XA and Closed fracture of right wrist, initial encounter S62.101A [facility] [address] [place] [address] 72483- 3445 November, [facility] [id number] [place] [address] 75879- 6170 Oct, [facility] [id number] [place] [address] 59478- 4832 Oct, Anxiety disorder, unspecified F41.9 ; Ankylosing spondylitis of multiple sites in spine M45.0 ; Ankylosing spondylitis M45.9 and Opioid use disorder, severe, dependence F11.20 [facility] [id number] [place] [address] 00179- 0843 Oct, Ankylosing spondylitis M45.9 and Anxiety disorder, unspecified F41.9 [facility] [id number] [place] [address] 03566- 7160 Oct, Ankylosing spondylitis of multiple sites in spine M45.0 [facility] [id number] [place] [address] 77063- 9691 Oct, Ankylosing spondylitis of multiple sites in spine M45.0 [facility] [id number] [place] [address] 10796- 4022 Oct, Ankylosing spondylitis of multiple sites in spine M45.0 [facility] [id number] [address]- 9386 Sep, [facility] [id number] [place] [address] 50213- 7900 Sep, Ankylosing spondylitis of multiple sites in spine M45.0 [facility] [id number] [place] [address] 38633- 3856 Aug, Ankylosing spondylitis of multiple sites in spine M45.0 [facility] [id number] [place] [address] 18312- 1673 Jul, Ankylosing spondylitis of multiple sites in spine M45.0 [facility] [address], [place] [address]- 0246 13 Jun, 2017 Ankylosing spondylitis of multiple sites in spine M45.0 [facility] [address], [place] [address]- 2626 15 May, 2017 Ankylosing spondylitis of multiple sites in spine M45.0 [facility] [id number] [address]- 8111 14 May, 2017 [facility] [address], [place] [address]- 1646 Apr, Ankylosing spondylitis of multiple sites in spine M45.0 and Cellulitis of leg, right L03.115 [facility] [address], [place] [address]- 9557 Apr, Ankylosing spondylitis of multiple sites in spine M45.0 [facility] [address], [place] [address]- 7768 22 Mar, 2017 Ankylosing spondylitis of multiple sites in spine M45.0 [facility] [address], [place] [address]- 7307 09 Apr, 2015 [facility] [address], [place] [address]- 0482 08 Apr, 2015 Ankylosing spondylitis M45.9 [facility] [address], [place] [address]- 8253 07 Apr, 2015 Ankylosing spondylitis M45.9 [facility] [address] 9136 Apr, [facility] [address] 3966 30 Mar, 2015 [facility] [address], [place] [address]- 7926 28 Mar, 2015 [facility] [address], [place] [address]- 3406 Mar, Ankylosing spondylitis 720.0 and Anxiety 300.00 [facility] [address], [place] [address]- 8406 Oct, [facility] [id number], [place] [address]- 6473 Oct, [facility] [address], [place] [address]- 5303 Apr, [facility] [address], [place] [address]- 4363 Sep, [facility] [address], [place] [address]- 2824 Apr, IMMUNIZATIONS No Known Immunizations SOCIAL HISTORY Never Assessed REASON FOR VISIT appt PLAN OF CARE VITAL SIGNS MEDICATIONS Medication Instructions Dosage Frequency Start Date End Date Duration Status Clindamycin HCl 300 MG Orally every 8 hrs 1 capsule 8h Jan,Jan 07 days Active Bactrim DS 800-160 MG Orally Twice a day 1 tablet 12h Jan,Jan 07 days Active RESULTS No Results PROCEDURES No [...]
--- OUTSIDE RECORDS SUMMARY | 2018-04-20 08:31 | XMS REPORT ---
Author Author NAJMA BLANTON Organization [facility] Address [address] [place] [address] Care Team Providers Care Press Operator Name Role Phone NAJMA BLANTON Unavailable PROBLEMS Type Condition ICD9-CM Code YTY26-QC Code Onset Dates Condition Status SNOMED Code Problem Encounter for attention to tracheostomy Z43.0 Active 287816517 Problem Opioid use disorder, severe, dependence F11.20 Active 88320375 Problem Anxiety 300.00 Active 33073194 Problem Ankylosing spondylitis M45.9 Active 9737313 Problem Anxiety disorder, unspecified F41.9 Active 800326721 Problem Ankylosing spondylitis of multiple sites in spine M45.0 Active 7791593 ALLERGIES No Information ENCOUNTERS Encounter Location Date Diagnosis [facility] [id number] [place] [address] 65862- 4744 Jan, [facility] [id number] [place] [address] 66454- 9477 Jan, Encounter for attention to tracheostomy Z43.0 [facility] [id number] [place] [address] 12096- 1951 Jan, [facility] [id number] [place] [address] 90020 -3566 Jan, [facility] [id number] [place] [address] 23195- 4558 Jan, [facility] [address] 31705- 8981 Jan, [facility] [id number] [place] [address] 59176- 3603 Dec, [facility] [id number] [place] [address] 80354- 3696 Dec, Ankylosing spondylitis M45.9 [facility] [address] [facility] [id number] [place] [address]- 6166 Dec, [facility] [address] [facility] [id number] [place] [address]- 1146 Dec, [facility] [address] [facility] [id number] [place] [address]- 3316 Dec, Ankylosing spondylitis M45.9 [facility] [address] [facility] [id number] [address]- 5866 Dec, Ankylosing spondylitis M45.9 [facility] [address] [facility] [id number] [place] [address]- 9946 Dec, [facility] [address] [facility] [id number] [place] [address]- 0466 Dec, [facility] [address] [address]- 5656 Dec, [facility] [address] [facility] [id number] [place] [address]- 7653 Dec, Ankylosing spondylitis M45.9 [facility] [address] [facility] [id number] [place] [address]- 0666 Dec, Ankylosing spondylitis M45.9 [facility] [address] [id number] [address]- 6076 Dec, Ankylosing spondylitis M45.9 [facility] [address] [facility] [id number] [place] [address] 2546 Dec, Ankylosing spondylitis M45.9 [facility] [address] [id number] [address]- 9556 November, Ankylosing spondylitis M45.9 [facility] [address] [facility] [id number] [place] [address]- 1038 November, Ankylosing spondylitis M45.9 ; Closed fracture of one rib of right side, initial encounter S22.31XA and Closed fracture of right wrist, initial encounter S62.101A [facility] [address] [place] [address] 24541- 9856 November, [facility] [id number] [place] [address] 66672- 7339 Oct, [facility] [id number] [place] [address] 07799- 2435 Oct, Anxiety disorder, unspecified F41.9 ; Ankylosing spondylitis of multiple sites in spine M45.0 ; Ankylosing spondylitis M45.9 and Opioid use disorder, severe, dependence F11.20 [facility] [id number] [place] [address] 44183- 7784 Oct, Ankylosing spondylitis M45.9 and Anxiety disorder, unspecified F41.9 [facility] [id number] [place] [address] 62357- 9169 Oct, Ankylosing spondylitis of multiple sites in spine M45.0 [facility] [id number] [place] [address] 34712- 8917 Oct, Ankylosing spondylitis of multiple sites in spine M45.0 [facility] [id number] [place] [address] 59665- 5555 Oct, Ankylosing spondylitis of multiple sites in spine M45.0 [facility] [address] [id number] [address]- 6303 Sep, [facility] [id number] [place] [address] 52626- 2073 Sep, Ankylosing spondylitis of multiple sites in spine M45.0 [facility] [id number] [place] [address] 51574- 7872 Aug, Ankylosing spondylitis of multiple sites in spine M45.0 [facility] [id number] [place] [address] 70621- 6209 Jul, Ankylosing spondylitis of multiple sites in spine M45.0 [facility] [address] [address]- 8736 13 Jun, 2017 Ankylosing spondylitis of multiple sites in spine M45.0 [facility] [address] [address]- 3806 15 May, 2017 Ankylosing spondylitis of multiple sites in spine M45.0 [facility] [address] [id number] [address]- 9970 14 May, 2017 [facility] [address] [address]- 2189 Apr, Ankylosing spondylitis of multiple sites in spine M45.0 and Cellulitis of leg, right L03.115 [facility] [address] [address]- 9499 Apr, Ankylosing spondylitis of multiple sites in spine M45.0 [facility] [address] [address]- 1029 22 Mar, 2017 Ankylosing spondylitis of multiple sites in spine M45.0 [facility] [address] [address]- 7383 09 Apr, 2015 [facility] [address] [address]- 0797 08 Apr, 2015 Ankylosing spondylitis M45.9 [facility] [address] [address]- 0525 07 Apr, 2015 Ankylosing spondylitis M45.9 [facility] [address] 4486 Apr, [facility] [address] 1686 30 Mar, 2015 [facility] [address] [address]- 5116 28 Mar, 2015 [facility] [address] [address]- 1323 Mar, Ankylosing spondylitis 720.0 and Anxiety 300.00 [facility] [address] [address]- 8052 Oct, [facility] [address] [address]- 6516 Oct, [facility] [id number] [place] [address] 616131- 5852 Apr, [facility] [address] [address]- 2128 Sep, [facility] [address]- 1348 Apr, IMMUNIZATIONS No Known Immunizations SOCIAL HISTORY Never Assessed REASON FOR VISIT KU tapering controlled meds PLAN OF CARE VITAL SIGNS MEDICATIONS Unknown [...]
--- OUTSIDE RECORDS SUMMARY | 2018-04-20 08:31 | XMS REPORT ---
Author Author NAJMA BLANTON Organization [facility] Address [address] [place] [address] Care Team Providers Care Pipe Insulator Helper Name Role Phone NAJMA BLANTON Unavailable PROBLEMS Type Condition ICD9-CM Code JUW19-IC Code Onset Dates Condition Status SNOMED Code Problem Encounter for attention to tracheostomy Z43.0 Active 604934653 Problem Opioid use disorder, severe, dependence F11.20 Active 49929453 Problem Anxiety 300.00 Active 03719442 Problem Ankylosing spondylitis M45.9 Active 6709599 Problem Anxiety disorder, unspecified F41.9 Active 024243154 Problem Ankylosing spondylitis of multiple sites in spine M45.0 Active 1406792 ALLERGIES No Information ENCOUNTERS Encounter Location Date Diagnosis [facility] [id number] [place] [address] 97053- 0552 Jan, [facility] [id number] [place] [address] 73991- 3737 Jan, Encounter for attention to tracheostomy Z43.0 [facility] [id number] [place] [address] 27904- 1162 Jan, [facility] [id number] [place] [address] 74332 -8691 Jan, [facility] [id number] [place] [address] 86089- 6317 Jan, [facility] [address] 68037- 0283 Jan, [facility] [id number] [place] [address] 62001- 5057 Dec, [facility] [id number] [place] [address] 97359- 4755 Dec, Ankylosing spondylitis M45.9 [facility] [address] [facility] [id number], [place] [address]- 5906 Dec, [facility] [address] [facility] [id number], [place] [address]- 1626 Dec, [facility] [address] [facility] [id number], [place] [address]- 7416 Dec, Ankylosing spondylitis M45.9 [facility] [address] [facility] [id number] [address]- 1636 Dec, Ankylosing spondylitis M45.9 [facility] [address] [facility] [id number] [place] [address]- 7046 Dec, [facility] [address] [facility] [id number], [place] [address]- 9736 Dec, [facility] [address] [address]- 0506 Dec, [facility] [address] [facility] [id number], [place] [address]- 5182 Dec, Ankylosing spondylitis M45.9 [facility] [address] [facility] [id number], [place] [address]- 2096 Dec, Ankylosing spondylitis M45.9 [facility] [address] [id number] [address]- 3046 Dec, Ankylosing spondylitis M45.9 [facility] [address] [facility] [id number], [place] [address] 2546 Dec, Ankylosing spondylitis M45.9 [facility] [address] [id number] [address]- 6716 November, Ankylosing spondylitis M45.9 [facility] [address] [facility] [id number], [place] [address]- 1302 November, Ankylosing spondylitis M45.9 ; Closed fracture of one rib of right side, initial encounter S22.31XA and Closed fracture of right wrist, initial encounter S62.101A [facility] [address] [place] [address] 48197- 4724 November, [facility] [id number] [place] [address] 30612- 0017 Oct, [facility] [id number] [place] [address] 15206- 9029 Oct, Anxiety disorder, unspecified F41.9 ; Ankylosing spondylitis of multiple sites in spine M45.0 ; Ankylosing spondylitis M45.9 and Opioid use disorder, severe, dependence F11.20 [facility] [id number] [place] [address] 96878- 1681 Oct, Ankylosing spondylitis M45.9 and Anxiety disorder, unspecified F41.9 [facility] [id number] [place] [address] 26629- 7514 Oct, Ankylosing spondylitis of multiple sites in spine M45.0 [facility] [id number] [place] [address] 70830- 9444 Oct, Ankylosing spondylitis of multiple sites in spine M45.0 [facility] [id number] [place] [address] 75413- 9848 Oct, Ankylosing spondylitis of multiple sites in spine M45.0 [facility] [address] [id number] [address]- 7561 Sep, [facility] [id number] [place] [address] 88326- 9289 Sep, Ankylosing spondylitis of multiple sites in spine M45.0 [facility] [id number] [place] [address] 72615- 1523 Aug, Ankylosing spondylitis of multiple sites in spine M45.0 [facility] [id number] [place] [address] 39714- 7695 Jul, Ankylosing spondylitis of multiple sites in spine M45.0 [facility] [address] [address]- 4766 13 Jun, 2017 Ankylosing spondylitis of multiple sites in spine M45.0 [facility] [address] [address]- 8456 15 May, 2017 Ankylosing spondylitis of multiple sites in spine M45.0 [facility] [address] [id number] [address]- 5629 14 May, 2017 [facility] [address], [place] [address]- 5272 Apr, Ankylosing spondylitis of multiple sites in spine M45.0 and Cellulitis of leg, right L03.115 [facility] [address] [address]- 6842 Apr, Ankylosing spondylitis of multiple sites in spine M45.0 [facility] [address], [place] [address]- 4346 22 Mar, 2017 Ankylosing spondylitis of multiple sites in spine M45.0 [facility] [address] [address]- 1772 09 Apr, 2015 [facility] [id number], [place] [address] 08 Apr, 2015 Ankylosing spondylitis M45.9 [facility] [id number], [place] [address] 07 Apr, 2015 Ankylosing spondylitis M45.9 [facility] [id number] [address] Apr, [facility] [id number] [address] 30 Mar, 2015 [facility] [id number], [place] [address] 28 Mar, 2015 [facility] [id number] [address] Mar, Ankylosing spondylitis 720.0 and Anxiety 300.00 [facility] [id number], [place] [address] Oct, [facility] [id number] [address] Oct, [facility] [id number] [place] [id number] Apr, [facility] [id number] [address] Sep, [facility] [id number] [id number] Apr, IMMUNIZATIONS No Known Immunizations SOCIAL HISTORY Never Assessed REASON FOR VISIT PLAN OF CARE VITAL SIGNS MEDICATIONS Unknown [...]
--- OUTSIDE RECORDS SUMMARY | 2018-04-20 08:32 | XMS REPORT ---
Author Author ALEXSANDER LAINEZ Organization [facility] Address [address] [place] [address] Care Team Providers Care Able Bodied Seaman Name Role Phone ALEXSANDER LAINEZ Unavailable PROBLEMS Type Condition ICD9-CM Code LKG55-VO Code Onset Dates Condition Status SNOMED Code Problem Encounter for attention to tracheostomy Z43.0 Active 992759930 Problem Opioid use disorder, severe, dependence F11.20 Active 01316484 Problem Anxiety 300.00 Active 95907038 Problem Ankylosing spondylitis M45.9 Active 9528626 Problem Anxiety disorder, unspecified F41.9 Active 900104083 Problem Ankylosing spondylitis of multiple sites in spine M45.0 Active 4027171 ALLERGIES No Information ENCOUNTERS Encounter Location Date Diagnosis [facility] [id number] [place] [address] 38847- 0452 Jan, [facility] [id number] [place] [address] 86550- 0710 Jan, Encounter for attention to tracheostomy Z43.0 [facility] [id number] [place] [address] 26054- 5451 Jan, [facility] [id number] [place] [address] 86040 -7027 Jan, [facility] [id number] [place] [address] 09346- 0448 Jan, [facility] [id number] [place] [address] 86167- 9921 Jan, [facility] [id number] [place] [address] 92300- 0416 Dec, [facility] [id number] [place] [address] 84777- 9642 Dec, Ankylosing spondylitis M45.9 [facility] [address] [facility] [id number], [place] [address]- 7106 Dec, [facility] [address] [facility] [id number], [place] [address]- 3626 Dec, [facility] [address] [facility] [id number], [place] [address]- 9806 Dec, Ankylosing spondylitis M45.9 [facility] [address] [facility] [id number], [place] [address]- 4516 Dec, Ankylosing spondylitis M45.9 [facility] [address] [facility] [id number] [place] [address]- 8946 Dec, [facility] [address] [facility] [id number], [place] [address]- 8456 Dec, [facility] [address] [facility] [id number], [place] [address]- 9728 Dec, [facility] [address] [facility] [id number], [place] [address]- 9666 Dec, Ankylosing spondylitis M45.9 [facility] [address] [facility] [id number], [place] [address]- 2140 Dec, Ankylosing spondylitis M45.9 [facility] [address] [facility] [id number], [place] [address]- 4016 Dec, Ankylosing spondylitis M45.9 [facility] [address] [facility] [id number], [place] [address]- 2677 Dec, Ankylosing spondylitis M45.9 [facility] [address] [facility] [id number], [place] [address]- 2080 November, Ankylosing spondylitis M45.9 [facility] [address] [facility] [id number], [place] [address]- 5270 November, Ankylosing spondylitis M45.9 ; Closed fracture of one rib of right side, initial encounter S22.31XA and Closed fracture of right wrist, initial encounter S62.101A [facility] [id number] [place] [address] 03626- 1688 November, [facility] [id number] [place] [address] 19578- 4295 Oct, [facility] [id number] [place] [address] 22955- 6663 Oct, Anxiety disorder, unspecified F41.9 ; Ankylosing spondylitis of multiple sites in spine M45.0 ; Ankylosing spondylitis M45.9 and Opioid use disorder, severe, dependence F11.20 [facility] [id number] [place] [address] 70162- 1900 Oct, Ankylosing spondylitis M45.9 and Anxiety disorder, unspecified F41.9 [facility] [id number] [place] [address] 49533- 9355 Oct, Ankylosing spondylitis of multiple sites in spine M45.0 [facility] [id number] [place] [address] 04799- 3188 Oct, Ankylosing spondylitis of multiple sites in spine M45.0 [facility] [address] [place] [address] 00652- 8320 Oct, Ankylosing spondylitis of multiple sites in spine M45.0 [facility] [address] [place] [address] 08650- 0062 Sep, [facility] [address] [place] [address] 51427- 8784 Sep, Ankylosing spondylitis of multiple sites in spine M45.0 [facility] [address] [place] [address] 83244- 5631 Aug, Ankylosing spondylitis of multiple sites in spine M45.0 [facility] [id number] [place] [address] 31416- 4293 Jul, Ankylosing spondylitis of multiple sites in spine M45.0 [facility] [address] [address]- 8736 Jun, Ankylosing spondylitis of multiple sites in spine M45.0 [facility] [id number] [place] [address] 10049- 6976 15 May, 2017 Ankylosing spondylitis of multiple sites in spine M45.0 [facility] [id number] [place] [address] 12221- 1248 14 May, 2017 [facility] [id number] [place] [address] 66076- 5062 Apr, Ankylosing spondylitis of multiple sites in spine M45.0 and Cellulitis of leg, right L03.115 [facility] [id number] [place] [address] 84212- 7659 Apr, Ankylosing spondylitis of multiple sites in spine M45.0 [facility] [id number] [place] [address] 94968- 7509 22 Mar, 2017 Ankylosing spondylitis of multiple sites in spine M45.0 [facility] [id number] [place] [address] 05914- 7218 09 Apr, 2015 [facility] [id number] [address]- 0913 08 Apr, 2015 Ankylosing spondylitis M45.9 [facility] [id number] [place] [address] 49846- 2239 07 Apr, 2015 Ankylosing spondylitis M45.9 [facility] [id number] [place] [address] 715310- 8536 Apr, [facility] [id number] [place] [address] [id number]- 8676 30 Mar, 2015 [facility] [id number] [address]- 8916 28 Mar, 2015 [facility] [address] [id number] [address]- 7126 Mar, Ankylosing spondylitis 720.0 and Anxiety 300.00 [facility] [address] [address] 3419 Oct, [facility] [address] 6636 Oct, [facility] [id number] [place] [address] 20768- 0715 Apr, [facility] [id number] [place] [address] 01758- 3479 Sep, [facility] [address] [place] [address] 80320- 7181 Apr, IMMUNIZATIONS No Known Immunizations SOCIAL HISTORY Never Assessed REASON FOR VISIT taper #4 01/09/18 PLAN OF CARE VITAL SIGNS MEDICATIONS Medication Instructions Dosage Frequency Start Date End Date Duration Status Percocet 10-325 MG Orally 4 times a day 2 tablet 6h Dec, 07 days Active MS Contin 15 mg 1 tablet in the morning, 1 tablet in the evening Dec 07 days Active RESULTS No Results PROCEDURES [...]
--- OUTSIDE RECORDS SUMMARY | 2018-04-20 08:32 | XMS REPORT ---
Author Author NAJMA BLANTON Organization [facility] Address [address] [place] [address] Care Team Providers Care Tube Building Machine Operator Name Role Phone NAJMA BLANTON Unavailable PROBLEMS Type Condition ICD9-CM Code ECB17-VY Code Onset Dates Condition Status SNOMED Code Problem Encounter for attention to tracheostomy Z43.0 Active 150521990 Problem Opioid use disorder, severe, dependence F11.20 Active 02977623 Problem Anxiety 300.00 Active 64746419 Problem Ankylosing spondylitis M45.9 Active 7476511 Problem Anxiety disorder, unspecified F41.9 Active 186029278 Problem Ankylosing spondylitis of multiple sites in spine M45.0 Active 5831661 ALLERGIES No Information ENCOUNTERS Encounter Location Date Diagnosis [facility] [id number] [place] [address] 89627- 1771 Jan, [facility] [id number] [place] [address] 31599- 4933 Jan, Encounter for attention to tracheostomy Z43.0 [facility] [id number] [place] [address] 69444- 8572 Jan, [facility] [id number] [place] [address] 38609 -0468 Jan, [facility] [id number] [place] [address] 46986- 8235 Jan, [facility] [address] 62055- 7573 Jan, [facility] [id number] [place] [address] 46602- 4663 Dec, [facility] [id number] [place] [address] 69924- 8077 Dec, Ankylosing spondylitis M45.9 [facility] [address] [facility] [id number] [address]- 4486 Dec, [facility] [address] [facility] [id number] [place] [address]- 9786 Dec, [facility] [address] [facility] [id number] [place] [address]- 3626 Dec, Ankylosing spondylitis M45.9 [facility] [address] [facility] [id number] [place] [address]- 6476 Dec, Ankylosing spondylitis M45.9 [facility] [address] [facility] [id number] [place] [address]- 5786 Dec, [facility] [address] [facility] [id number] [address]- 9836 Dec, [facility] [address] [address]- 5836 Dec, [facility] [address] [facility] [id number] [place] [address]- 5710 Dec, Ankylosing spondylitis M45.9 [facility] [address] [facility] [id number] [place] [address]- 6276 Dec, Ankylosing spondylitis M45.9 [facility] [address] [id number] [address]- 3486 Dec, Ankylosing spondylitis M45.9 [facility] [address] [facility] [id number] [place] [address] 2546 Dec, Ankylosing spondylitis M45.9 [facility] [address] [id number] [address]- 6426 November, Ankylosing spondylitis M45.9 [facility] [address] [facility] [id number] [address]- 2840 November, Ankylosing spondylitis M45.9 ; Closed fracture of one rib of right side, initial encounter S22.31XA and Closed fracture of right wrist, initial encounter S62.101A [facility] [address] [place] [address] 06587- 6370 November, [facility] [id number] [place] [address] 23767- 5942 Oct, [facility] [id number] [place] [address] 20587- 4506 Oct, Anxiety disorder, unspecified F41.9 ; Ankylosing spondylitis of multiple sites in spine M45.0 ; Ankylosing spondylitis M45.9 and Opioid use disorder, severe, dependence F11.20 [facility] [id number] [place] [address] 48689- 8329 Oct, Ankylosing spondylitis M45.9 and Anxiety disorder, unspecified F41.9 [facility] [id number] [place] [address] 37931- 4440 Oct, Ankylosing spondylitis of multiple sites in spine M45.0 [facility] [id number] [place] [address] 89083- 9007 Oct, Ankylosing spondylitis of multiple sites in spine M45.0 [facility] [id number] [place] [address] 70997- 5067 Oct, Ankylosing spondylitis of multiple sites in spine M45.0 [facility] [address] [id number] [address]- 8869 Sep, [facility] [id number] [place] [address] 97901- 4402 Sep, Ankylosing spondylitis of multiple sites in spine M45.0 [facility] [id number] [place] [address] 14092- 5424 Aug, Ankylosing spondylitis of multiple sites in spine M45.0 [facility] [id number] [place] [address] 36737- 0980 Jul, Ankylosing spondylitis of multiple sites in spine M45.0 [facility] [address]65100[place] [address]- 4926 13 Jun, 2017 Ankylosing spondylitis of multiple sites in spine M45.0 [facility] [address]65100[place] [address]- 9676 15 May, 2017 Ankylosing spondylitis of multiple sites in spine M45.0 [facility] [address] [id number] [address]- 5269 14 May, 2017 [facility] [address]100[place] [address]- 4959 Apr, Ankylosing spondylitis of multiple sites in spine M45.0 and Cellulitis of leg, right L03.115 [facility] [address] [address]- 3392 Apr, Ankylosing spondylitis of multiple sites in spine M45.0 [facility] [address] [address]- 7612 22 Mar, 2017 Ankylosing spondylitis of multiple sites in spine M45.0 [facility] [address]65100[place] [address]- 5440 09 Apr, 2015 [facility] [address]100[place] [address]- 1780 08 Apr, 2015 Ankylosing spondylitis M45.9 [facility] [address] [address]- 6434 07 Apr, 2015 Ankylosing spondylitis M45.9 [facility] [address] 9836 Apr, [facility] [address]- 1566 30 Mar, 2015 [facility] [address]65100[place] [address]- 5906 28 Mar, 2015 [facility] [address] [address]- 8065 Mar, Ankylosing spondylitis 720.0 and Anxiety 300.00 [facility] [address] [address]- 1217 Oct, [facility] [address] 1122 Oct, [facility] [id number] [place] [address] 38642- 1774 Apr, [facility] [address] [address]- 5765 Sep, [facility] [address] [address]- 9420 Apr, IMMUNIZATIONS No Known Immunizations SOCIAL HISTORY Never Assessed REASON FOR VISIT Controlled Med Refill inquiry PLAN OF CARE VITAL SIGNS MEDICATIONS Unknown [...]
--- OUTSIDE RECORDS SUMMARY | 2018-04-20 08:32 | XMS REPORT ---
Author Author NAJMA BLANTON Organization [facility] Address [address] [place] [address] Care Team Providers Care General Worker Name Role Phone NAJMA BLANTON Unavailable PROBLEMS Type Condition ICD9-CM Code ZRR19-RN Code Onset Dates Condition Status SNOMED Code Problem Encounter for attention to tracheostomy Z43.0 Active 128131823 Problem Opioid use disorder, severe, dependence F11.20 Active 30002474 Problem Anxiety 300.00 Active 36357509 Problem Ankylosing spondylitis M45.9 Active 6918794 Problem Anxiety disorder, unspecified F41.9 Active 094526498 Problem Ankylosing spondylitis of multiple sites in spine M45.0 Active 0035759 ALLERGIES No Information ENCOUNTERS Encounter Location Date Diagnosis [facility] [id number] [place] [address] 68461- 4049 Jan, [facility] [id number] [place] [address] 28946- 2984 Jan, Encounter for attention to tracheostomy Z43.0 [facility] [id number] [place] [address] 81046- 9442 Jan, [facility] [id number] [place] [address] 22984 -9918 Jan, [facility] [id number] [place] [address] 98858- 5821 Jan, [facility] [address] 79175- 0176 Jan, [facility] [id number] [place] [address] 90308- 0654 Dec, [facility] [id number] [place] [address] 91128- 8405 Dec, Ankylosing spondylitis M45.9 [facility] [address] [facility] [id number] [place] [address]- 4496 Dec, [facility] [address] [facility] [id number] [place] [address]- 7726 Dec, [facility] [address] [facility] [id number] [place] [address]- 7836 Dec, Ankylosing spondylitis M45.9 [facility] [address] [facility] [id number] [place] [address]- 8556 Dec, Ankylosing spondylitis M45.9 [facility] [address] [facility] [id number] [place] [address]- 9806 Dec, [facility] [address] [facility] [id number] [place] [address]- 6166 Dec, [facility] [address] [address]- 7686 Dec, [facility] [address] [facility] [id number] [place] [address]- 8555 Dec, Ankylosing spondylitis M45.9 [facility] [address] [facility] [id number] [place] [address]- 4646 Dec, Ankylosing spondylitis M45.9 [facility] [address] [id number] [address]- 3486 Dec, Ankylosing spondylitis M45.9 [facility] [address] [facility] [id number] [place] [address] 2546 Dec, Ankylosing spondylitis M45.9 [facility] [address] [id number] [address]- 8446 November, Ankylosing spondylitis M45.9 [facility] [address] [facility] [id number] [place] [address]- 2086 November, Ankylosing spondylitis M45.9 ; Closed fracture of one rib of right side, initial encounter S22.31XA and Closed fracture of right wrist, initial encounter S62.101A [facility] [address] [place] [address] 46775- 9528 November, [facility] [id number] [place] [address] 76682- 9986 Oct, [facility] [id number] [place] [address] 20056- 7600 Oct, Anxiety disorder, unspecified F41.9 ; Ankylosing spondylitis of multiple sites in spine M45.0 ; Ankylosing spondylitis M45.9 and Opioid use disorder, severe, dependence F11.20 [facility] [id number] [place] [address] 38494- 0275 Oct, Ankylosing spondylitis M45.9 and Anxiety disorder, unspecified F41.9 [facility] [id number] [place] [address] 11755- 4472 Oct, Ankylosing spondylitis of multiple sites in spine M45.0 [facility] [id number] [place] [address] 54549- 3710 Oct, Ankylosing spondylitis of multiple sites in spine M45.0 [facility] [id number] [place] [address] 80741- 1699 Oct, Ankylosing spondylitis of multiple sites in spine M45.0 [facility] [address] [id number] [address]- 7721 Sep, [facility] [id number] [place] [address] 66215- 2681 Sep, Ankylosing spondylitis of multiple sites in spine M45.0 [facility] [id number] [place] [address] 78380- 5724 Aug, Ankylosing spondylitis of multiple sites in spine M45.0 [facility] [id number] [place] [address] 89533- 0276 Jul, Ankylosing spondylitis of multiple sites in spine M45.0 [facility] [address] [address]- 2126 13 Jun, 2017 Ankylosing spondylitis of multiple sites in spine M45.0 [facility] [address] [address]- 3426 15 May, 2017 Ankylosing spondylitis of multiple sites in spine M45.0 [facility] [address] [id number] [address]- 1769 14 May, 2017 [facility] [address] [address]- 4850 Apr, Ankylosing spondylitis of multiple sites in spine M45.0 and Cellulitis of leg, right L03.115 [facility] [address] [address]- 6386 Apr, Ankylosing spondylitis of multiple sites in spine M45.0 [facility] [id number] [address] 22 Mar, 2017 Ankylosing spondylitis of multiple sites in spine M45.0 [facility] [id number] [address] 09 Apr, 2015 [facility] [id number] [address] 08 Apr, 2015 Ankylosing spondylitis M45.9 [facility] [id number] [address] 07 Apr, 2015 Ankylosing spondylitis M45.9 [facility] [id number] [address] Apr, [facility] [id number] [address] 30 Mar, 2015 [facility] [id number] [address] 28 Mar, 2015 [facility] [id number] [address] Mar, Ankylosing spondylitis 720.0 and Anxiety 300.00 [facility] [id number] [address] Oct, [facility] [id number] [address] Oct, [facility] [id number] [address] Apr, [facility] [id number] [address] Sep, [facility] [id number] [address] Apr, IMMUNIZATIONS No Known Immunizations SOCIAL HISTORY Never Assessed REASON FOR VISIT taper #4 01/16/18 PLAN OF CARE VITAL SIGNS MEDICATIONS Medication Instructions Dosage Frequency Start Date End Date Duration Status Percocet 10-325 MG Orally 4 times a day 2 tablet 6h Dec, 07 days Active MS Contin 15 mg 1 tablet in am 1 tablet in pm Dec, 07 days Active RESULTS No Results PROCEDURES [...]
--- OUTSIDE RECORDS SUMMARY | 2018-04-20 08:32 | XMS REPORT ---
Author Author NAJMA BLANTON Organization [facility] Address [address] [place] [address] Care Team Providers Care Overlock Sleeve Setter Name Role Phone NAJMA BLANTON Unavailable PROBLEMS Type Condition ICD9-CM Code [id number] Code Onset Dates Condition Status SNOMED Code Problem Encounter for attention to tracheostomy Z43.0 Active 106463551 Problem Opioid use disorder, severe, dependence F11.20 Active 42568627 Problem Anxiety 300.00 Active 67698966 Problem Ankylosing spondylitis M45.9 Active 5141517 Problem Anxiety disorder, unspecified F41.9 Active 293890394 Problem Ankylosing spondylitis of multiple sites in spine M45.0 Active 7791864 ALLERGIES No Information ENCOUNTERS Encounter Location Date Diagnosis [facility] [id number] [place] [address] 10799- 2352 Jan, [facility] [id number] [place] [address] 52218- 4079 Jan, Encounter for attention to tracheostomy Z43.0 [facility] [id number] [place] [address] 54070- 7469 Jan, [facility] [id number] [place] [address] 73446 -9849 Jan, [facility] [id number] [place] [address] 82223- 1338 Jan, [facility] [address] 13107- 4966 Jan, [facility] [id number] [place] [address] 20165- 8756 Dec, [facility] [id number] [place] [address] 18136- 2686 Dec, Ankylosing spondylitis M45.9 [facility] [address] [facility] [id number], [place] [address] 8826 Dec, [facility] [address] [facility] [id number], [place] [address] 0846 Dec, [facility] [address] [facility] [id number], [place] [address]- 0996 Dec, Ankylosing spondylitis M45.9 [facility] [address] [facility] [id number], [place] [address] 7536 Dec, Ankylosing spondylitis M45.9 [facility] [address] [facility] [id number] [place] [address]- 0086 Dec, [facility] [address] [facility] [id number], [place] [address]- 0246 Dec, [facility] [address] [address] 9146 Dec, [facility] [address] [facility] [id number], [place] [address]- 4457 Dec, Ankylosing spondylitis M45.9 [facility] [address] [facility] [id number], [place] [address]- 2506 Dec, Ankylosing spondylitis M45.9 [facility] [address] [id number] [address]- 4746 Dec, Ankylosing spondylitis M45.9 [facility] [address] [facility] [id number], [place] [address] 2546 Dec, Ankylosing spondylitis M45.9 [facility] [address] [id number] [address]- 0956 November, Ankylosing spondylitis M45.9 [facility] [address] [facility] [id number], [place] [address]- 1527 November, Ankylosing spondylitis M45.9 ; Closed fracture of one rib of right side, initial encounter S22.31XA and Closed fracture of right wrist, initial encounter S62.101A [facility] [address] [place] [address] 33451- 3973 November, [facility] [id number] [place] [address] 89571- 2001 Oct, [facility] [id number] [place] [address] 21853- 5372 Oct, Anxiety disorder, unspecified F41.9 ; Ankylosing spondylitis of multiple sites in spine M45.0 ; Ankylosing spondylitis M45.9 and Opioid use disorder, severe, dependence F11.20 [facility] [id number] [place] [address] 97410- 9203 Oct, Ankylosing spondylitis M45.9 and Anxiety disorder, unspecified F41.9 [facility] [id number] [place] [address] 87587- 1288 Oct, Ankylosing spondylitis of multiple sites in spine M45.0 [facility] [id number] [place] [address] 92403- 5092 Oct, Ankylosing spondylitis of multiple sites in spine M45.0 [facility] [id number] [place] [address] 89084- 1170 Oct, Ankylosing spondylitis of multiple sites in spine M45.0 [facility] [address] [id number] [address]- 1162 Sep, [facility] [id number] [place] [address] 19412- 8098 Sep, Ankylosing spondylitis of multiple sites in spine M45.0 [facility] [id number] [place] [address] 79299- 9376 Aug, Ankylosing spondylitis of multiple sites in spine M45.0 [facility] [id number] [place] [address] 14152- 1046 Jul, Ankylosing spondylitis of multiple sites in spine M45.0 [facility] [address] [address]- 2696 13 Jun, 2017 Ankylosing spondylitis of multiple sites in spine M45.0 [facility] [address] [address]- 3826 15 May, 2017 Ankylosing spondylitis of multiple sites in spine M45.0 [facility] [id number] [address]- 6825 14 May, 2017 [facility] [address], [place] [address]- 5301 Apr, Ankylosing spondylitis of multiple sites in spine M45.0 and Cellulitis of leg, right L03.115 [facility] [address], [place] [address]- 7305 Apr, Ankylosing spondylitis of multiple sites in spine M45.0 [facility] [address], [place] [address]- 4410 22 Mar, 2017 Ankylosing spondylitis of multiple sites in spine M45.0 [facility] [address], [place] [address] 09 Apr, 2015 [facility] [address], [place] [address]- 6896 08 Apr, 2015 Ankylosing spondylitis M45.9 [facility] [address], [place] [address]- 4429 07 Apr, 2015 Ankylosing spondylitis M45.9 [facility] [address] 5556 Apr, [facility] [address] 5546 30 Mar, 2015 [facility] [address], [place] [address]- 1656 28 Mar, 2015 [facility] [address], [place] [address]- 6568 Mar, Ankylosing spondylitis 720.0 and Anxiety 300.00 [facility] [address], [place] [address]- 7196 Oct, [facility] [address], [place] [address]- 1351 Oct, [facility] [id number] [place] [address] 93206- 6820 Apr, [facility] [address], [place] [address]- 0498 Sep, [facility] [address] [address]- 7214 Apr, IMMUNIZATIONS No Known Immunizations SOCIAL HISTORY Never Assessed REASON FOR VISIT medication concerns// PLAN OF CARE VITAL SIGNS MEDICATIONS Unknown [...]
--- OUTSIDE RECORDS SUMMARY | 2018-04-20 08:32 | XMS REPORT ---
Author Author NAJMA BLANTON Organization [facility] Address [address] [place] [address] Care Team Providers Care Geospatial Imagery Intelligence Analyst Name Role Phone NAJMA BLANTON Unavailable PROBLEMS Type Condition ICD9-CM Code ACH46-AQ Code Onset Dates Condition Status SNOMED Code Problem Encounter for attention to tracheostomy Z43.0 Active 619655883 Problem Opioid use disorder, severe, dependence F11.20 Active 32057634 Problem Anxiety 300.00 Active 80246751 Problem Ankylosing spondylitis M45.9 Active 4725357 Problem Anxiety disorder, unspecified F41.9 Active 238678312 Problem Ankylosing spondylitis of multiple sites in spine M45.0 Active 8830258 ALLERGIES No Information ENCOUNTERS Encounter Location Date Diagnosis [facility] [id number] [place] [address] 86488- 5967 Jan, [facility] [id number] [place] [address] 47198- 6737 Jan, Encounter for attention to tracheostomy Z43.0 [facility] [id number] [place] [address] 16691- 5778 Jan, [facility] [id number] [place] [address] 68711 -0856 Jan, [facility] [id number] [place] [address] 44577- 4777 Jan, [facility] [address] 04757- 6425 Jan, [facility] [id number] [place] [address] 70703- 0981 Dec, [facility] [id number] [place] [address] 77646- 1729 Dec, Ankylosing spondylitis M45.9 [facility] [address] [facility] [id number] [address]- 9826 Dec, [facility] [address] [facility] [id number] [place] [address]- 3356 Dec, [facility] [address] [facility] [id number] [place] [address]- 0056 Dec, Ankylosing spondylitis M45.9 [facility] [address] [facility] [id number] [place] [address]- 7336 Dec, Ankylosing spondylitis M45.9 [facility] [address] [facility] [id number] [place] [address]- 0266 Dec, [facility] [address] [facility] [id number] [place] [address]- 4326 Dec, [facility] [address] [address]- 0336 Dec, [facility] [address] [facility] [id number] [place] [address]- 0481 Dec, Ankylosing spondylitis M45.9 [facility] [address] [facility] [id number] [place] [address]- 9206 Dec, Ankylosing spondylitis M45.9 [facility] [address] [id number] [address]- 2296 Dec, Ankylosing spondylitis M45.9 [facility] [address] [facility] [id number] [place] [address] 2546 Dec, Ankylosing spondylitis M45.9 [facility] [address] [id number] [address]- 0806 November, Ankylosing spondylitis M45.9 [facility] [address] [facility] [id number] [place] [address]- 9388 November, Ankylosing spondylitis M45.9 ; Closed fracture of one rib of right side, initial encounter S22.31XA and Closed fracture of right wrist, initial encounter S62.101A [facility] [address] [place] [address] 49701- 8591 November, [facility] [id number] [place] [address] 99092- 0245 Oct, [facility] [id number] [place] [address] 50516- 2531 Oct, Anxiety disorder, unspecified F41.9 ; Ankylosing spondylitis of multiple sites in spine M45.0 ; Ankylosing spondylitis M45.9 and Opioid use disorder, severe, dependence F11.20 [facility] [id number] [place] [address] 20282- 3466 Oct, Ankylosing spondylitis M45.9 and Anxiety disorder, unspecified F41.9 [facility] [id number] [place] [address] 18847- 7330 Oct, Ankylosing spondylitis of multiple sites in spine M45.0 [facility] [id number] [place] [address] 61279- 8440 Oct, Ankylosing spondylitis of multiple sites in spine M45.0 [facility] [id number] [place] [address] 13548- 8605 Oct, Ankylosing spondylitis of multiple sites in spine M45.0 [facility] [address] [id number] [address]- 2000 Sep, [facility] [id number] [place] [address] 52546- 2686 Sep, Ankylosing spondylitis of multiple sites in spine M45.0 [facility] [id number] [place] [address] 07898- 9011 Aug, Ankylosing spondylitis of multiple sites in spine M45.0 [facility] [id number] [place] [address] 55934- 9737 Jul, Ankylosing spondylitis of multiple sites in spine M45.0 [facility] [address] [address]- 7546 13 Jun, 2017 Ankylosing spondylitis of multiple sites in spine M45.0 [facility] [address] [address]- 0486 15 May, 2017 Ankylosing spondylitis of multiple sites in spine M45.0 [facility] [id number] [address]- 0810 14 May, 2017 [facility] [address] [address]- 1534 Apr, Ankylosing spondylitis of multiple sites in spine M45.0 and Cellulitis of leg, right L03.115 [facility] [address] [address]- 6203 Apr, Ankylosing spondylitis of multiple sites in spine M45.0 [facility] [address] [address]- 9551 22 Mar, 2017 Ankylosing spondylitis of multiple sites in spine M45.0 [facility] [address] [address]- 8573 09 Apr, 2015 [facility] [address] [address]- 9906 08 Apr, 2015 Ankylosing spondylitis M45.9 [facility] [address] [address]- 1316 07 Apr, 2015 Ankylosing spondylitis M45.9 [facility] [address] 6276 Apr, [facility] [address] 2726 30 Mar, 2015 [facility] [address] [address]- 1736 28 Mar, 2015 [facility] [address] [address] 2546 Mar, Ankylosing spondylitis 720.0 and Anxiety 300.00 [facility] [address] [address]- 3164 Oct, [facility] [address] [id number] [address]- 2763 Oct, [facility] [id number] [address]- 3598 Apr, [facility] [address] [address]- 5432 Sep, [facility] [address] [address]- 8242 Apr, IMMUNIZATIONS No Known Immunizations SOCIAL HISTORY Never Assessed REASON FOR VISIT taper #5 01/23/18 PLAN OF CARE VITAL SIGNS MEDICATIONS Medication Instructions Dosage Frequency Start Date End Date Duration Status MS Contin 15 mg 1 tablet in am Dec, Jan, 07 days Active Percocet 10-325 MG Orally 4 times a day 2 tablet 6h Dec, 07 days Active RESULTS No Results [...]
--- OUTSIDE RECORDS SUMMARY | 2018-04-20 08:32 | XMS REPORT ---
Author Author NAJMA BLANTON Organization [facility] Address [address] [place] [address] Care Team Providers Care Merchant Seaman Name Role Phone NAJMA BLANTON Unavailable PROBLEMS Type Condition ICD9-CM Code [id number] Code Onset Dates Condition Status SNOMED Code Problem Encounter for attention to tracheostomy Z43.0 Active 882481815 Problem Opioid use disorder, severe, dependence F11.20 Active 10849877 Problem Anxiety 300.00 Active 16037478 Problem Ankylosing spondylitis M45.9 Active 7858568 Problem Anxiety disorder, unspecified F41.9 Active 562020684 Problem Ankylosing spondylitis of multiple sites in spine M45.0 Active 5154158 ALLERGIES No Information ENCOUNTERS Encounter Location Date Diagnosis [facility] [id number] [place] [address] 66859- 8755 Jan, [facility] [id number] [place] [address] 71009- 7642 Jan, Encounter for attention to tracheostomy Z43.0 [facility] [id number] [place] [address] 47769- 1084 Jan, [facility] [id number] [place] [address] 13450 -0490 Jan, [facility] [id number] [place] [address] 42060- 2150 Jan, [facility] [address] 24805- 9455 Jan, [facility] [id number] [place] [address] 38045- 2418 Dec, [facility] [id number] [place] [address] 69364- 1529 Dec, Ankylosing spondylitis M45.9 [facility] [address] [facility] [id number] [address] 4146 Dec, [facility] [address] [facility] [id number] [address]- 7376 Dec, [facility] [address] [facility] [id number] [address]- 2216 Dec, Ankylosing spondylitis M45.9 [facility] [address] [facility] [id number] [address]- 3906 Dec, Ankylosing spondylitis M45.9 [facility] [address] [facility] [id number] [place] [address] 8116 Dec, [facility] [address] [facility] [id number] [place] [address]- 1756 Dec, [facility] [address] [address]- 3296 Dec, [facility] [address] [facility] [id number] [address]- 2084 Dec, Ankylosing spondylitis M45.9 [facility] [address] [facility] [id number] [place] [address]- 1566 Dec, Ankylosing spondylitis M45.9 [facility] [address] [id number] [address]- 6296 Dec, Ankylosing spondylitis M45.9 [facility] [address] [facility] [id number] [place] [address] 2546 Dec, Ankylosing spondylitis M45.9 [facility] [address] [id number] [address]- 5836 November, Ankylosing spondylitis M45.9 [facility] [address] [facility] [id number] [place] [address]- [address] November, Ankylosing spondylitis M45.9 ; Closed fracture of one rib of right side, initial encounter S22.31XA and Closed fracture of right wrist, initial encounter S62.101A [facility] [address] [place] [address] 57152- 7302 November, [facility] [id number] [place] [address] 60755- 0115 Oct, [facility] [id number] [place] [address] 61865- 0582 Oct, Anxiety disorder, unspecified F41.9 ; Ankylosing spondylitis of multiple sites in spine M45.0 ; Ankylosing spondylitis M45.9 and Opioid use disorder, severe, dependence F11.20 [facility] [id number] [place] [address] 62554- 5172 Oct, Ankylosing spondylitis M45.9 and Anxiety disorder, unspecified F41.9 [facility] [id number] [place] [address] 96513- 1786 Oct, Ankylosing spondylitis of multiple sites in spine M45.0 [facility] [id number] [place] [address] 20128- 1835 Oct, Ankylosing spondylitis of multiple sites in spine M45.0 [facility] [id number] [place] [address] 65677- 6506 Oct, Ankylosing spondylitis of multiple sites in spine M45.0 [facility] [address] [id number] [address]- 6188 Sep, [facility] [id number] [place] [address] 90072- 3382 Sep, Ankylosing spondylitis of multiple sites in spine M45.0 [facility] [id number] [place] [address] 15395- 2437 Aug, Ankylosing spondylitis of multiple sites in spine M45.0 [facility] [id number] [place] [address] 53661- 3281 Jul, Ankylosing spondylitis of multiple sites in spine M45.0 [facility] [address] [address]- 8326 13 Jun, 2017 Ankylosing spondylitis of multiple sites in spine M45.0 [facility] [address] [address]- 8526 15 May, 2017 Ankylosing spondylitis of multiple sites in spine M45.0 [facility] [id number] [address]- 6261 14 May, 2017 [facility] [address] [address]- 3314 Apr, Ankylosing spondylitis of multiple sites in spine M45.0 and Cellulitis of leg, right L03.115 [facility] [address] [address]- 4764 Apr, Ankylosing spondylitis of multiple sites in spine M45.0 [facility] [address] [address]- 8459 22 Mar, 2017 Ankylosing spondylitis of multiple sites in spine M45.0 [facility] [address] [address]- 0162 09 Apr, 2015 [facility] [address] [address]- 8722 08 Apr, 2015 Ankylosing spondylitis M45.9 [facility] [address] [address]- 1098 07 Apr, 2015 Ankylosing spondylitis M45.9 [facility] [address] 7726 Apr, [facility] [address] 4646 30 Mar, 2015 [facility] [address] [address]- 1526 28 Mar, 2015 [facility] [address] [address]- 5115 Mar, Ankylosing spondylitis 720.0 and Anxiety 300.00 [facility] [address] [address]- 5960 Oct, [facility] [address] [address]- 0986 Oct, [facility] [id number] [place] [address] 57791- 7086 Apr, [facility] [address] 2740 Sep, [facility] [address] 4885 Apr, IMMUNIZATIONS No Known Immunizations SOCIAL HISTORY Never Assessed REASON FOR VISIT taper #6 01/30/18 PLAN OF CARE VITAL SIGNS MEDICATIONS Unknown [...]
--- OUTSIDE RECORDS SUMMARY | 2018-04-20 08:33 | XMS REPORT ---
Author Author NAJMA BLANTON Organization [facility] Address [address] [place] [address] Care Team Providers Care Critical Care Registered Nurse Name Role Phone NAJMA BLANTON Unavailable PROBLEMS Type Condition ICD9-CM Code IRR37-KX Code Onset Dates Condition Status SNOMED Code Problem Encounter for attention to tracheostomy Z43.0 Active 649826450 Problem Opioid use disorder, severe, dependence F11.20 Active 33775667 Problem Anxiety 300.00 Active 11283680 Problem Ankylosing spondylitis M45.9 Active 5613312 Problem Anxiety disorder, unspecified F41.9 Active 470287143 Problem Ankylosing spondylitis of multiple sites in spine M45.0 Active 7297270 ALLERGIES No Information ENCOUNTERS Encounter Location Date Diagnosis [facility] [id number] [place] [address] 46235- 3233 Jan, [facility] [id number] [place] [address] 42557- 9223 Jan, Encounter for attention to tracheostomy Z43.0 [facility] [id number] [place] [address] 10358- 6322 Jan, [facility] [id number] [place] [address] 76364 -4681 Jan, [facility] [id number] [place] [address] 57911- 6651 Jan, [facility] [address] 49365- 7673 Jan, [facility] [id number] [place] [address] 19585- 8594 Dec, [facility] [id number] [place] [address] 92201- 8024 Dec, Ankylosing spondylitis M45.9 [facility] [address] [facility] [id number] [address]- 0806 Dec, [facility] [address] [facility] [id number] [address]- 5886 Dec, [facility] [address] [facility] [id number] [address]- 5306 Dec, Ankylosing spondylitis M45.9 [facility] [address] [facility] [id number], [place] [address]- 1876 Dec, Ankylosing spondylitis M45.9 [facility] [address] [facility] [id number] [place] [address]- 3856 Dec, [facility] [address] [facility] [id number] [address]- 2616 Dec, [facility] [address], [place] [address]- 0966 Dec, [facility] [address] [facility] [id number] [address]- 5513 Dec, Ankylosing spondylitis M45.9 [facility] [address] [facility] [id number] [address]- 5026 Dec, Ankylosing spondylitis M45.9 [facility] [address] [id number] [address]- 3806 Dec, Ankylosing spondylitis M45.9 [facility] [address] [facility] [id number] [address] 2546 Dec, Ankylosing spondylitis M45.9 [facility] [address] [id number] [address]- 5126 November, Ankylosing spondylitis M45.9 [facility] [address] [facility] [id number] [address]- 2520 November, Ankylosing spondylitis M45.9 ; Closed fracture of one rib of right side, initial encounter S22.31XA and Closed fracture of right wrist, initial encounter S62.101A [facility] [address] [place] [address] 70510- 2501 November, [facility] [id number] [place] [address] 74691- 3573 Oct, [facility] [id number] [place] [address] 58324- 4966 Oct, Anxiety disorder, unspecified F41.9 ; Ankylosing spondylitis of multiple sites in spine M45.0 ; Ankylosing spondylitis M45.9 and Opioid use disorder, severe, dependence F11.20 [facility] [id number] [place] [address] 28752- 9523 Oct, Ankylosing spondylitis M45.9 and Anxiety disorder, unspecified F41.9 [facility] [id number] [place] [address] 95032- 6603 Oct, Ankylosing spondylitis of multiple sites in spine M45.0 [facility] [id number] [place] [address] 26142- 6519 Oct, Ankylosing spondylitis of multiple sites in spine M45.0 [facility] [id number] [place] [address] 09836- 3690 Oct, Ankylosing spondylitis of multiple sites in spine M45.0 [facility] [address] [id number] [address]- 7110 Sep, [facility] [id number] [place] [address] 69029- 3080 Sep, Ankylosing spondylitis of multiple sites in spine M45.0 [facility] [id number] [place] [address] 99737- 9281 Aug, Ankylosing spondylitis of multiple sites in spine M45.0 [facility] [id number] [place] [address] 26304- 5445 Jul, Ankylosing spondylitis of multiple sites in spine M45.0 [facility] [address] [address]- 8296 13 Jun, 2017 Ankylosing spondylitis of multiple sites in spine M45.0 [facility] [address], [place] [address]- 9786 15 May, 2017 Ankylosing spondylitis of multiple sites in spine M45.0 [facility] [address] [id number] [address]- 7096 14 May, 2017 [facility] [address] [address]- 0775 Apr, Ankylosing spondylitis of multiple sites in spine M45.0 and Cellulitis of leg, right L03.115 [facility] [address] [address]- 4290 Apr, Ankylosing spondylitis of multiple sites in spine M45.0 [facility] [address] [address]- 2042 22 Mar, 2017 Ankylosing spondylitis of multiple sites in spine M45.0 [facility] [address], [place] [address]- 7147 09 Apr, 2015 [facility] [address], [place] [address]- 9021 08 Apr, 2015 Ankylosing spondylitis M45.9 [facility] [address], [place] [address]- 9556 07 Apr, 2015 Ankylosing spondylitis M45.9 [facility] [address]- 7836 Apr, [facility] [address]- 6486 30 Mar, 2015 [facility] [address] [address]- 6516 28 Mar, 2015 [facility] [address], [place] [address]- 2546 Mar, Ankylosing spondylitis 720.0 and Anxiety 300.00 [facility] [address], [place] [address] 2546 Oct, [facility] [address] [id number] [address]- 2546 Oct, [facility] [address], [place] [address]- 2546 Apr, [facility] [address], [place] [address]- 2546 Sep, [facility] [address], [place] [address]- 7766 Apr, IMMUNIZATIONS No Known Immunizations SOCIAL HISTORY Never Assessed REASON FOR VISIT taper #3 01/02/18 PLAN OF CARE VITAL SIGNS MEDICATIONS Medication Instructions Dosage Frequency Start Date End Date Duration Status Percocet 10-325 MG Orally 4 times a day 2 tablet 6h Dec, 07 days Active MS Contin 15 mg Orally 2 tablets in the morning; 1 tablet orally in the evening 1 tablet Dec, Dec, 07 days Active RESULTS No Results [...]
--- OUTSIDE RECORDS SUMMARY | 2018-04-20 08:33 | XMS REPORT ---
Author Author NAJMA BLANTON Organization [facility] Address [address] [place] [address] Care Team Providers Care Film Loader Name Role Phone NAJMA BLANTON Unavailable PROBLEMS Type Condition ICD9-CM Code EXL59-TF Code Onset Dates Condition Status SNOMED Code Problem Encounter for attention to tracheostomy Z43.0 Active 471962734 Problem Opioid use disorder, severe, dependence F11.20 Active 98055584 Problem Anxiety 300.00 Active 39578301 Problem Ankylosing spondylitis M45.9 Active 5035901 Problem Anxiety disorder, unspecified F41.9 Active 377581610 Problem Ankylosing spondylitis of multiple sites in spine M45.0 Active 7571826 ALLERGIES No Information ENCOUNTERS Encounter Location Date Diagnosis [facility] [id number] [place] [address] 13349- 5942 Jan, [facility] [id number] [place] [address] 89382- 3973 Jan, Encounter for attention to tracheostomy Z43.0 [facility] [id number] [place] [address] 78724- 9143 Jan, [facility] [id number] [place] [address] 98139 -8507 Jan, [facility] [id number] [place] [address] 86115- 6852 Jan, [facility] [address] 98287- 4757 Jan, [facility] [id number] [place] [address] 39206- 6762 Dec, [facility] [id number] [place] [address] 56013- 2909 Dec, Ankylosing spondylitis M45.9 [facility] [address] [facility] [id number], [place] [address]- 8536 Dec, [facility] [address] [facility] [id number], [place] [address]- 7996 Dec, [facility] [address] [facility] [id number], [place] [address]- 9356 Dec, Ankylosing spondylitis M45.9 [facility] [address] [facility] [id number], [place] [address]- 9106 Dec, Ankylosing spondylitis M45.9 [facility] [address] [facility] [id number] [place] [address]- 7886 Dec, [facility] [address] [facility] [id number], [place] [address]- 7626 Dec, [facility] [address], [place] [address]- 8966 Dec, [facility] [address] [facility] [id number], [place] [address]- 8975 Dec, Ankylosing spondylitis M45.9 [facility] [address] [facility] [id number], [place] [address]- 8316 Dec, Ankylosing spondylitis M45.9 [facility] [address] [id number], [place] [address]- 1966 Dec, Ankylosing spondylitis M45.9 [facility] [address] [facility] [id number], [place] [address] 2546 Dec, Ankylosing spondylitis M45.9 [facility] [address] [id number], [place] [address]- 0616 November, Ankylosing spondylitis M45.9 [facility] [address] [facility] [id number], [place] [address]- 3649 November, Ankylosing spondylitis M45.9 ; Closed fracture of one rib of right side, initial encounter S22.31XA and Closed fracture of right wrist, initial encounter S62.101A [facility] [address] [place] [address] 09170- 1397 November, [facility] [id number] [place] [address] 81097- 1119 Oct, [facility] [id number] [place] [address] 57839- 7530 Oct, Anxiety disorder, unspecified F41.9 ; Ankylosing spondylitis of multiple sites in spine M45.0 ; Ankylosing spondylitis M45.9 and Opioid use disorder, severe, dependence F11.20 [facility] [id number] [place] [address] 13918- 5271 Oct, Ankylosing spondylitis M45.9 and Anxiety disorder, unspecified F41.9 [facility] [id number] [place] [address] 32756- 3257 Oct, Ankylosing spondylitis of multiple sites in spine M45.0 [facility] [id number] [place] [address] 91831- 7270 Oct, Ankylosing spondylitis of multiple sites in spine M45.0 [facility] [id number] [place] [address] 93606- 8924 Oct, Ankylosing spondylitis of multiple sites in spine M45.0 [facility] [address] [id number], [place] [address]- 9995 Sep, [facility] [id number] [place] [address] 93217- 0321 Sep, Ankylosing spondylitis of multiple sites in spine M45.0 [facility] [id number] [place] [address] 53753- 7472 Aug, Ankylosing spondylitis of multiple sites in spine M45.0 [facility] [id number] [place] [address] 94868- 4070 Jul, Ankylosing spondylitis of multiple sites in spine M45.0 [facility] [address], [place] [address]- 9866 13 Jun, 2017 Ankylosing spondylitis of multiple sites in spine M45.0 [facility] [address], [place] [address]- 9086 15 May, 2017 Ankylosing spondylitis of multiple sites in spine M45.0 [facility] [id number], [place] [address]- 0522 14 May, 2017 [facility] [address], [place] [address]- 8988 Apr, Ankylosing spondylitis of multiple sites in spine M45.0 and Cellulitis of leg, right L03.115 [facility] [address], [place] [address]- 4736 Apr, Ankylosing spondylitis of multiple sites in spine M45.0 [facility] [address], [place] [address]- 4208 22 Mar, 2017 Ankylosing spondylitis of multiple sites in spine M45.0 [facility] [id number], [place] [address] 09 Apr, 2015 [facility] [id number] [place] [address] 08 Apr, 2015 Ankylosing spondylitis M45.9 [facility] [id number] [place] [address] 07 Apr, 2015 Ankylosing spondylitis M45.9 [facility] [id number] [address] Apr, [facility] [id number] [address] 30 Mar, 2015 [facility] [id number] [place] [address] 28 Mar, 2015 [facility] [id number] [place] [address] Mar, Ankylosing spondylitis 720.0 and Anxiety 300.00 [facility] [id number] [place] [address] Oct, [facility] [id number] [address] Oct, [facility] [id number] [address] Apr, [facility] [id number] [place] [address] Sep, [facility] [id number], [place] [address] Apr, IMMUNIZATIONS No Known Immunizations SOCIAL HISTORY Never Assessed REASON FOR VISIT Controlled Med Refill PLAN OF CARE VITAL SIGNS MEDICATIONS Medication Instructions Dosage Frequency Start Date End Date Duration Status Percocet 10-325 MG Orally 4 times a day 2 tablet 6h Dec, 07 days Active MS Contin 15 mg 2 tablets in the morning 1 tablet in the evening Dec Active RESULTS No Results PROCEDURES No Known [...]
--- OUTSIDE RECORDS SUMMARY | 2018-04-20 08:33 | XMS REPORT ---
Author Author NAJMA BLANTON Organization [facility] Address [address] [place] [address] Care Team Providers Care Equipment Service Associate Name Role Phone NAJMA BLANTON Unavailable PROBLEMS Type Condition ICD9-CM Code [id number] Code Onset Dates Condition Status SNOMED Code Problem Encounter for attention to tracheostomy Z43.0 Active 484682459 Problem Opioid use disorder, severe, dependence F11.20 Active 26950022 Problem Anxiety 300.00 Active 00102311 Problem Ankylosing spondylitis M45.9 Active 6120848 Problem Anxiety disorder, unspecified F41.9 Active 130235481 Problem Ankylosing spondylitis of multiple sites in spine M45.0 Active 3700015 ALLERGIES No Information ENCOUNTERS Encounter Location Date Diagnosis [facility] [id number] [place] [address] 08997- 6635 Jan, [facility] [id number] [place] [address] 95960- 5734 Jan, Encounter for attention to tracheostomy Z43.0 [facility] [id number] [place] [address] 84216- 1020 Jan, [facility] [id number] [place] [address] 57984 -6840 Jan, [facility] [id number] [place] [address] 84318- 7656 Jan, [facility] [address] 15966- 3464 Jan, [facility] [id number] [place] [address] 08586- 5999 Dec, [facility] [id number] [place] [address] 21174- 8067 Dec, Ankylosing spondylitis M45.9 [facility] [address] [facility] [id number] [address] 1406 Dec, [facility] [address] [facility] [id number] [place] [address]- 5086 Dec, [facility] [address] [facility] [id number] [place] [address]- 3486 Dec, Ankylosing spondylitis M45.9 [facility] [address] [facility] [id number] [place] [address]- 8916 Dec, Ankylosing spondylitis M45.9 [facility] [address] [facility] [id number] [place] [address]- 5426 Dec, [facility] [address] [facility] [id number] [place] [address]- 7436 Dec, [facility] [address] [address]- 5106 Dec, [facility] [address] [facility] [id number] [place] [address]- 5034 Dec, Ankylosing spondylitis M45.9 [facility] [address] [facility] [id number] [place] [address]- 9766 Dec, Ankylosing spondylitis M45.9 [facility] [address] [id number] [address]- 2266 Dec, Ankylosing spondylitis M45.9 [facility] [address] [facility] [id number] [place] [address] 2546 Dec, Ankylosing spondylitis M45.9 [facility] [address] [id number] [address]- 2236 November, Ankylosing spondylitis M45.9 [facility] [address] [facility] [id number] [place] [address]- 2273 November, Ankylosing spondylitis M45.9 ; Closed fracture of one rib of right side, initial encounter S22.31XA and Closed fracture of right wrist, initial encounter S62.101A [facility] [address] [place] [address] 29852- 0261 November, [facility] [id number] [place] [address] 09272- 6253 Oct, [facility] [id number] [place] [address] 02848- 8008 Oct, Anxiety disorder, unspecified F41.9 ; Ankylosing spondylitis of multiple sites in spine M45.0 ; Ankylosing spondylitis M45.9 and Opioid use disorder, severe, dependence F11.20 [facility] [id number] [place] [address] 33192- 1871 Oct, Ankylosing spondylitis M45.9 and Anxiety disorder, unspecified F41.9 [facility] [id number] [place] [address] 88563- 8863 Oct, Ankylosing spondylitis of multiple sites in spine M45.0 [facility] [id number] [place] [address] 42494- 1492 Oct, Ankylosing spondylitis of multiple sites in spine M45.0 [facility] [id number] [place] [address] 10376- 0647 Oct, Ankylosing spondylitis of multiple sites in spine M45.0 [facility] [address] [id number] [address]- 6427 Sep, [facility] [id number] [place] [address] 42461- 3370 Sep, Ankylosing spondylitis of multiple sites in spine M45.0 [facility] [id number] [place] [address] 34735- 8299 Aug, Ankylosing spondylitis of multiple sites in spine M45.0 [facility] [id number] [place] [address] 25244- 2383 Jul, Ankylosing spondylitis of multiple sites in spine M45.0 [facility] [address] [address]- 7916 13 Jun, 2017 Ankylosing spondylitis of multiple sites in spine M45.0 [facility] [address] [address]- 0306 15 May, 2017 Ankylosing spondylitis of multiple sites in spine M45.0 [facility] [id number] [address]- 9309 14 May, 2017 [facility] [address] [address]- 8496 Apr, Ankylosing spondylitis of multiple sites in spine M45.0 and Cellulitis of leg, right L03.115 [facility] [address] [address]- 3077 Apr, Ankylosing spondylitis of multiple sites in spine M45.0 [facility] [address] [address]- 9301 22 Mar, 2017 Ankylosing spondylitis of multiple sites in spine M45.0 [facility] [address] [address]- 4970 09 Apr, 2015 [facility] [address] [address]- 6315 08 Apr, 2015 Ankylosing spondylitis M45.9 [facility] [address] [address]- 3584 07 Apr, 2015 Ankylosing spondylitis M45.9 [facility] [address] 6376 Apr, [facility] [address] 1406 30 Mar, 2015 [facility] [address] [address]- 4166 28 Mar, 2015 [facility] [address] [address] 2546 Mar, Ankylosing spondylitis 720.0 and Anxiety 300.00 [facility] [address] [address]- 5496 Oct, [facility] [id number] [address]- 2004 Oct, [facility] [id number] [address]- 8115 Apr, [facility] [address] [address]- 0521 Sep, [facility] [address] [address]- 1814 Apr, IMMUNIZATIONS No Known Immunizations SOCIAL HISTORY Never Assessed REASON FOR VISIT med PLAN OF CARE VITAL SIGNS MEDICATIONS Medication Instructions Dosage Frequency Start Date End Date Duration Status Percocet 10-325 MG Orally 4 times a day 2 tablet 6h Dec, 07 days Active MS Contin 30 MG Orally in the morning; 1 tablet orally in the evening 1 tablet Dec, 07 days Active RESULTS No Results [...]
--- OUTSIDE RECORDS SUMMARY | 2018-04-20 08:33 | XMS REPORT ---
Author Author NAJMA BLANTON Organization [facility] Address [address] [place] [address] Care Team Providers Care Burr Bench Operator Name Role Phone NAJMA BLANTON Unavailable PROBLEMS Type Condition ICD9-CM Code XRR72-HG Code Onset Dates Condition Status SNOMED Code Problem Encounter for attention to tracheostomy Z43.0 Active 450205170 Problem Opioid use disorder, severe, dependence F11.20 Active 64908353 Problem Anxiety 300.00 Active 90707604 Problem Ankylosing spondylitis M45.9 Active 4158518 Problem Anxiety disorder, unspecified F41.9 Active 541419962 Problem Ankylosing spondylitis of multiple sites in spine M45.0 Active 1550163 ALLERGIES No Information ENCOUNTERS Encounter Location Date Diagnosis [facility] [id number] [place] [address] 61440- 3826 Jan, [facility] [id number] [place] [address] 74437- 8951 Jan, Encounter for attention to tracheostomy Z43.0 [facility] [id number] [place] [address] 43779- 7533 Jan, [facility] [id number] [place] [address] 20233 -9285 Jan, [facility] [id number] [place] [address] 71523- 1863 Jan, [facility] [address] 32679- 4646 Jan, [facility] [id number] [place] [address] 41532- 9851 Dec, [facility] [id number] [place] [address] 22875- 0683 Dec, Ankylosing spondylitis M45.9 [facility] [address] [facility] [id number] [place] [address]- 3516 Dec, [facility] [address] [facility] [id number] [place] [address]- 2306 Dec, [facility] [address] [facility] [id number] [place] [address]- 7536 Dec, Ankylosing spondylitis M45.9 [facility] [address] [facility] [id number] [place] [address]- 9256 Dec, Ankylosing spondylitis M45.9 [facility] [address] [facility] [id number] [place] [address]- 0036 Dec, [facility] [address] [facility] [id number] [place] [address]- 3386 Dec, [facility] [address] [address]- 0946 Dec, [facility] [address] [facility] [id number] [place] [address]- 3521 Dec, Ankylosing spondylitis M45.9 [facility] [address] [facility] [id number] [place] [address]- 0996 Dec, Ankylosing spondylitis M45.9 [facility] [address] [id number] [address]- 5976 Dec, Ankylosing spondylitis M45.9 [facility] [address] [facility] [id number] [place] [address] 2546 Dec, Ankylosing spondylitis M45.9 [facility] [address] [id number] [address]- 3936 November, Ankylosing spondylitis M45.9 [facility] [address] [facility] [id number] [place] [address]- 8220 November, Ankylosing spondylitis M45.9 ; Closed fracture of one rib of right side, initial encounter S22.31XA and Closed fracture of right wrist, initial encounter S62.101A [facility] [address] [place] [address] 76388- 5219 November, [facility] [id number] [place] [address] 11755- 4511 Oct, [facility] [id number] [place] [address] 88514- 6682 Oct, Anxiety disorder, unspecified F41.9 ; Ankylosing spondylitis of multiple sites in spine M45.0 ; Ankylosing spondylitis M45.9 and Opioid use disorder, severe, dependence F11.20 [facility] [id number] [place] [address] 28765- 8906 Oct, Ankylosing spondylitis M45.9 and Anxiety disorder, unspecified F41.9 [facility] [id number] [place] [address] 12638- 1934 Oct, Ankylosing spondylitis of multiple sites in spine M45.0 [facility] [id number] [place] [address] 43658- 2049 Oct, Ankylosing spondylitis of multiple sites in spine M45.0 [facility] [id number] [place] [address] 50323- 2777 Oct, Ankylosing spondylitis of multiple sites in spine M45.0 [facility] [address] [id number] [address]- 8131 Sep, [facility] [id number] [place] [address] 80857- 1872 Sep, Ankylosing spondylitis of multiple sites in spine M45.0 [facility] [id number] [place] [address] 05922- 2145 Aug, Ankylosing spondylitis of multiple sites in spine M45.0 [facility] [id number] [place] [address] 17144- 4266 Jul, Ankylosing spondylitis of multiple sites in spine M45.0 [facility] [address] [address]- 0386 13 Jun, 2017 Ankylosing spondylitis of multiple sites in spine M45.0 [facility] [address] [address]- 7636 15 May, 2017 Ankylosing spondylitis of multiple sites in spine M45.0 [facility] [address] [id number] [address]- 3507 14 May, 2017 [facility] [address] [address]- 2009 Apr, Ankylosing spondylitis of multiple sites in spine M45.0 and Cellulitis of leg, right L03.115 [facility] [address] [address]- 6615 Apr, Ankylosing spondylitis of multiple sites in spine M45.0 [facility] [address] [address]- 1008 22 Mar, 2017 Ankylosing spondylitis of multiple sites in spine M45.0 [facility] [address] [address]- 1786 09 Apr, 2015 [facility] [address] [address]- 4892 08 Apr, 2015 Ankylosing spondylitis M45.9 [facility] [address] [address]- 7472 07 Apr, 2015 Ankylosing spondylitis M45.9 [facility] [address] 1306 Apr, [facility] [address] 7706 30 Mar, 2015 [facility] [address] [address]- 4966 28 Mar, 2015 [facility] [address] [address]- 6211 Mar, Ankylosing spondylitis 720.0 and Anxiety 300.00 [facility] [address] [address]- 0812 Oct, [facility] [address] [address]- 9927 Oct, [facility] [id number] [place] [address] 746876- 5410 Apr, [facility] [address] [address]- 6408 Sep, [facility] [address]- 6276 Apr, IMMUNIZATIONS No Known Immunizations SOCIAL HISTORY Never Assessed REASON FOR VISIT FYI PLAN OF CARE VITAL SIGNS MEDICATIONS Unknown [...]
--- OUTSIDE RECORDS SUMMARY | 2018-04-20 08:33 | XMS REPORT ---
Author Author NAJMA BLANTON Organization [facility] Address [address] [place] [address] Care Team Providers Care Booking Clerk Name Role Phone NAJMA BLANTON Unavailable PROBLEMS Type Condition ICD9-CM Code NUI54-BM Code Onset Dates Condition Status SNOMED Code Problem Encounter for attention to tracheostomy Z43.0 Active 235884023 Problem Opioid use disorder, severe, dependence F11.20 Active 98753521 Problem Anxiety 300.00 Active 00913721 Problem Ankylosing spondylitis M45.9 Active 6249136 Problem Anxiety disorder, unspecified F41.9 Active 979034512 Problem Ankylosing spondylitis of multiple sites in spine M45.0 Active 6978407 ALLERGIES No Information ENCOUNTERS Encounter Location Date Diagnosis [facility] [id number] [place] [address] 73846- 0207 Jan, [facility] [id number] [place] [address] 74188- 5071 Jan, Encounter for attention to tracheostomy Z43.0 [facility] [id number] [place] [address] 91426- 4657 Jan, [facility] [id number] [place] [address] 97497 -4880 Jan, [facility] [id number] [place] [address] 93849- 5411 Jan, [facility] [address] 09521- 2302 Jan, [facility] [id number] [place] [address] 38185- 6400 Dec, [facility] [id number] [place] [address] 09285- 3735 Dec, Ankylosing spondylitis M45.9 [facility] [address] [facility] [id number] [place] [address]- 5986 Dec, [facility] [address] [facility] [id number] [place] [address]- 4836 Dec, [facility] [address] [facility] [id number] [place] [address]- 6236 Dec, Ankylosing spondylitis M45.9 [facility] [address] [facility] [id number] [place] [address]- 1086 Dec, Ankylosing spondylitis M45.9 [facility] [address] [facility] [id number] [place] [address]- 8906 Dec, [facility] [address] [facility] [id number] [place] [address]- 0836 Dec, [facility] [address] [address]- 2706 Dec, [facility] [address] [facility] [id number] [place] [address]- 8333 Dec, Ankylosing spondylitis M45.9 [facility] [address] [facility] [id number] [place] [address]- 8016 Dec, Ankylosing spondylitis M45.9 [facility] [address] [id number] [address]- 9226 Dec, Ankylosing spondylitis M45.9 [facility] [address] [facility] [id number] [place] [address] 2546 Dec, Ankylosing spondylitis M45.9 [facility] [address] [id number] [address]- 7876 November, Ankylosing spondylitis M45.9 [facility] [address] [facility] [id number] [place] [address]- 4239 November, Ankylosing spondylitis M45.9 ; Closed fracture of one rib of right side, initial encounter S22.31XA and Closed fracture of right wrist, initial encounter S62.101A [facility] [address] [place] [address] 60941- 9099 November, [facility] [id number] [place] [address] 78251- 4994 Oct, [facility] [id number] [place] [address] 38984- 8444 Oct, Anxiety disorder, unspecified F41.9 ; Ankylosing spondylitis of multiple sites in spine M45.0 ; Ankylosing spondylitis M45.9 and Opioid use disorder, severe, dependence F11.20 [facility] [id number] [place] [address] 64226- 5874 Oct, Ankylosing spondylitis M45.9 and Anxiety disorder, unspecified F41.9 [facility] [id number] [place] [address] 14391- 2401 Oct, Ankylosing spondylitis of multiple sites in spine M45.0 [facility] [id number] [place] [address] 58898- 7862 Oct, Ankylosing spondylitis of multiple sites in spine M45.0 [facility] [id number] [place] [address] 34534- 1628 Oct, Ankylosing spondylitis of multiple sites in spine M45.0 [facility] [address] [id number] [address]- 0606 Sep, [facility] [id number] [place] [address] 60395- 4521 Sep, Ankylosing spondylitis of multiple sites in spine M45.0 [facility] [id number] [place] [address] 28092- 1794 Aug, Ankylosing spondylitis of multiple sites in spine M45.0 [facility] [id number] [place] [address] 78317- 2521 Jul, Ankylosing spondylitis of multiple sites in spine M45.0 [facility] [address] [address]- 4116 13 Jun, 2017 Ankylosing spondylitis of multiple sites in spine M45.0 [facility] [address] [address]- 2426 15 May, 2017 Ankylosing spondylitis of multiple sites in spine M45.0 [facility] [id number] [address]- 2229 14 May, 2017 [facility] [address] [address]- 6295 Apr, Ankylosing spondylitis of multiple sites in spine M45.0 and Cellulitis of leg, right L03.115 [facility] [address] [address] Apr, Ankylosing spondylitis of multiple sites in spine M45.0 [facility] [address] [address] 22 Mar, 2017 Ankylosing spondylitis of multiple sites in spine M45.0 [facility] [address] [address] 09 Apr, 2015 [facility] [address] [address] 08 Apr, 2015 Ankylosing spondylitis M45.9 [facility] [address] [address] 07 Apr, 2015 Ankylosing spondylitis M45.9 [facility] [address] [address] Apr, [facility] [address] [address] 30 Mar, 2015 [facility] [address] [address] 28 Mar, 2015 [facility] [address] [address] Mar, Ankylosing spondylitis 720.0 and Anxiety 300.00 [facility] [address] [address] Oct, [facility] [address] [address] Oct, [facility] [id number] [place] [address] Apr, [facility] [address] [address] Sep, [facility] [address] [address] Apr, IMMUNIZATIONS No Known Immunizations SOCIAL HISTORY Never Assessed REASON FOR VISIT Controlled Med Refill/ PLAN OF CARE VITAL SIGNS MEDICATIONS Unknown [...]
--- OUTSIDE RECORDS SUMMARY | 2018-04-20 08:33 | XMS REPORT ---
Author Author NAJMA BLANTON Organization [facility] Address [address] [place] [address] Care Team Providers Care Sharepoint Consultant Name Role Phone NAJMA BLANTON Unavailable PROBLEMS Type Condition ICD9-CM Code QDF48-KE Code Onset Dates Condition Status SNOMED Code Problem Encounter for attention to tracheostomy Z43.0 Active 413407162 Problem Opioid use disorder, severe, dependence F11.20 Active 15422997 Problem Anxiety 300.00 Active 73092430 Problem Ankylosing spondylitis M45.9 Active 2563131 Problem Anxiety disorder, unspecified F41.9 Active 727848934 Problem Ankylosing spondylitis of multiple sites in spine M45.0 Active 9762444 ALLERGIES No Information ENCOUNTERS Encounter Location Date Diagnosis [facility] [id number] [place] [address] 05948- 5261 Jan, [facility] [id number] [place] [address] 02550- 0632 Jan, Encounter for attention to tracheostomy Z43.0 [facility] [id number] [place] [address] 55256- 4624 Jan, [facility] [id number] [place] [address]553 -9695 Jan, [facility] [id number] [place] [address] 09860- 7631 Jan, [facility] [address] [address]- 4815 Jan, [facility] [id number] [place] [address] 54275- 0753 Dec, [facility] [id number] [place] [address] 74073- 1452 Dec, Ankylosing spondylitis M45.9 [facility] [address] [facility] [id number] [place] [address] 120[address] Dec, [facility] [address] [facility] [id number] [address] Dec, [facility] [address] [facility] [id number] [place] [address]- 0276 Dec, Ankylosing spondylitis M45.9 [facility] [address] [facility] [id number] [place] [address]- 9336 Dec, Ankylosing spondylitis M45.9 [facility] [address] [facility] [id number] [place] [address] 4[address] Dec, [facility] [address] [facility] [id number] [address] Dec, [facility] [address] [address] 5536 Dec, [facility] [address] [facility] [id number] [place] [address]- 7772 Dec, Ankylosing spondylitis M45.9 [facility] [address] [facility] [id number] [place] [address]- 4896 Dec, Ankylosing spondylitis M45.9 [facility] [address] [id number] [address]- 2726 Dec, Ankylosing spondylitis M45.9 [facility] [address] [facility] [id number] [place] [address] 2546 Dec, Ankylosing spondylitis M45.9 [facility] [address] [id number] [address]- 9756 November, Ankylosing spondylitis M45.9 [facility] [address] [facility] [id number] [address]- 3710 November, Ankylosing spondylitis M45.9 ; Closed fracture of one rib of right side, initial encounter S22.31XA and Closed fracture of right wrist, initial encounter S62.101A [facility] [address] [place] [address] 00046- 3089 November, [facility] [id number] [place] [address] 72459- 2504 Oct, [facility] [id number] [place] [address] 62157- 0997 Oct, Anxiety disorder, unspecified F41.9 ; Ankylosing spondylitis of multiple sites in spine M45.0 ; Ankylosing spondylitis M45.9 and Opioid use disorder, severe, dependence F11.20 [facility] [id number] [place] [address] 00345- 5198 Oct, Ankylosing spondylitis M45.9 and Anxiety disorder, unspecified F41.9 [facility] [id number] [place] [address] 29768- 6584 Oct, Ankylosing spondylitis of multiple sites in spine M45.0 [facility] [id number] [place] [address] 94968- 3779 Oct, Ankylosing spondylitis of multiple sites in spine M45.0 [facility] [id number] [place] [address] 35790- 6368 Oct, Ankylosing spondylitis of multiple sites in spine M45.0 [facility] [address] [id number] [address]- [address]65 Sep, [facility] [id number] [place] [address] 99863- 8971 Sep, Ankylosing spondylitis of multiple sites in spine M45.0 [facility] [id number] [place] [address] 75106- 6393 Aug, Ankylosing spondylitis of multiple sites in spine M45.0 [facility] [id number] [place] [address] 72771- 8717 Jul, Ankylosing spondylitis of multiple sites in spine M45.0 [facility] [address] [address]- 1276 13 Jun, 2017 Ankylosing spondylitis of multiple sites in spine M45.0 [facility] [address] [address]- 6596 15 May, 2017 Ankylosing spondylitis of multiple sites in spine M45.0 [facility] [id number] [address]- 2901 14 May, 2017 [facility] [address] [address]- 9829 Apr, Ankylosing spondylitis of multiple sites in spine M45.0 and Cellulitis of leg, right L03.115 [facility] [address] [address]- 1322 Apr, Ankylosing spondylitis of multiple sites in spine M45.0 [facility] [address] [address]- 3679 22 Mar, 2017 Ankylosing spondylitis of multiple sites in spine M45.0 [facility] [address] [address]- 8818 09 Apr, 2015 [facility] [address] [address]- 7270 08 Apr, [address] [facility] [address] [address]- 1863 07 Apr, [address] [facility] [address] [address] Apr, [facility] [address] [address] 30 Mar, 2015 [facility] [address] [address]- 4066 28 Mar, 2015 [facility] [address] [address]- 1192 Mar, Ankylosing spondylitis 720.[address] [facility] [address] [address]- 9751 Oct, [facility] [address] [address]- 8583 Oct, [facility] [id number] [place] [address] 72322- 7856 Apr, [facility] [address] [address]- 0976 Sep, [facility] [address] [address] 3557 Apr, IMMUNIZATIONS No Known Immunizations SOCIAL HISTORY Never Assessed REASON FOR VISIT medications request PLAN OF CARE VITAL SIGNS MEDICATIONS Unknown [...]
--- OUTSIDE RECORDS SUMMARY | 2018-04-20 08:34 | XMS REPORT ---
Author Author FERNANDO BROOKS Organization [facility] Address [address] [place] [address] Care Team Providers Care Dairy Machine Operator Farmworker Name Role Phone FERNANDO BROOKS Unavailable PROBLEMS Type Condition ICD9-CM Code LQT73-XG Code Onset Dates Condition Status SNOMED Code Problem Encounter for attention to tracheostomy Z43.0 Active 993743375 Problem Opioid use disorder, severe, dependence F11.20 Active 64229636 Problem Anxiety 300.00 Active 11844459 Problem Ankylosing spondylitis M45.9 Active 7128550 Problem Anxiety disorder, unspecified F41.9 Active 055804519 Problem Ankylosing spondylitis of multiple sites in spine M45.0 Active 5315386 ALLERGIES No Information ENCOUNTERS Encounter Location Date Diagnosis [facility] [id number] [place] [address] 43812- 6032 Jan, [facility] [id number] [place] [address] 88514- 6087 Jan, Encounter for attention to tracheostomy Z43.0 [facility] [id number] [place] [address] 56087- 4271 Jan, [facility] [id number] [place] [address] 79394 -0932 Jan, [facility] [id number] [place] [address] 77598- 1939 Jan, [facility] [place] [id number] [place] [address] 87101- 1766 Jan, [facility] [place] [id number] [place] [address] 66027- 8603 Dec, [facility] [place] [id number] [place] [address] 10644- 1969 Dec, Ankylosing spondylitis M45.9 [facility] [place] [address] [facility] [id number], [place] [address]- 2646 Dec, [facility] [place] [address] [facility] [id number], [place] [address]- 5756 Dec, [facility] [place] [address] [facility] [id number], [place] [address]- 0311 Dec, Ankylosing spondylitis M45.9 [facility] [place] [address] [facility] [id number], [place] [address]- 4421 Dec, Ankylosing spondylitis M45.9 [facility] [place] [address] [facility] [id number], [place] [address]- 2090 Dec, [facility] [place] [address] [facility] [id number], [place] [address]- 2824 Dec, [facility] [place] [address] [facility] [id number], [place] [address]- 0588 Dec, [facility] [place] [address] [facility] [id number], [place] [address]- 9159 Dec, Ankylosing spondylitis M45.9 [facility] [place] [address] [facility] [id number], [place] [address]- 7957 Dec, Ankylosing spondylitis M45.9 [facility] [place] [address] [facility] [id number], [place] [address]- 6120 Dec, Ankylosing spondylitis M45.9 [facility] [place] [address] [facility] [id number], [place] [address]- 3339 Dec, Ankylosing spondylitis M45.9 [facility] [place] [address] [facility] [id number], [place] [address]- 4038 November, Ankylosing spondylitis M45.9 [facility] [place] [address] [facility] [id number], [place] [address]- 1162 November, Ankylosing spondylitis M45.9 ; Closed fracture of one rib of right side, initial encounter S22.31XA and Closed fracture of right wrist, initial encounter S62.101A [facility] [place] [id number] [place] [address] 85805- 4793 November, [facility] [place] [id number] [place] [address] 37465- 7897 Oct, [facility] [place] [id number] [place] [address] 94055- 0863 Oct, Anxiety disorder, unspecified F41.9 ; Ankylosing spondylitis of multiple sites in spine M45.0 ; Ankylosing spondylitis M45.9 and Opioid use disorder, severe, dependence F11.20 [facility] [place] [id number] [place] [address] 84068- 1413 Oct, Ankylosing spondylitis M45.9 and Anxiety disorder, unspecified F41.9 [facility] [place] [id number] [place] [address] 64594- 4424 Oct, Ankylosing spondylitis of multiple sites in spine M45.0 [facility] [place] [id number] [place] [address] 98756- 0923 Oct, Ankylosing spondylitis of multiple sites in spine M45.0 [facility] [place] [id number] [place] [address] 23188- 8410 Oct, Ankylosing spondylitis of multiple sites in spine M45.0 [facility] [place] [address], [place] [address]- 7894 Sep, [facility] [place] [id number] [place] [address] 25418- 2426 Sep, Ankylosing spondylitis of multiple sites in spine M45.0 [facility] [place] [id number] [place] [address] 63192- 5419 Aug, Ankylosing spondylitis of multiple sites in spine M45.0 [facility] [place] [id number] [place] [address] 23413- 3848 Jul, Ankylosing spondylitis of multiple sites in spine M45.0 [facility] [place] [address], [place] [address]- 8739 Jun, Ankylosing spondylitis of multiple sites in spine M45.0 [facility] [place] [address], [place] [address]- 6164 15 May, 2017 Ankylosing spondylitis of multiple sites in spine M45.0 [facility] [place] [id number] [place] [address] 51799- 0134 14 May, 2017 [facility] [place] [id number] [place] [address] 14769- 1059 Apr, Ankylosing spondylitis of multiple sites in spine M45.0 and Cellulitis of leg, right L03.115 [facility] [place] [id number] [address]- 6998 Apr, Ankylosing spondylitis of multiple sites in spine M45.0 [facility] [place] [address], [place] [address]- 8681 22 Mar, 2017 Ankylosing spondylitis of multiple sites in spine M45.0 [facility] [place] [id number] [place] [address] 36842- 1781 09 Apr, 2015 [facility] [place] [address], [place] [address]- 0003 08 Apr, 2015 Ankylosing spondylitis M45.9 [facility] [place] [address], [place] [address]- 8792 07 Apr, 2015 Ankylosing spondylitis M45.9 [facility] [place] [address] 2616 Apr, [facility] [place] [id number]- 1286 30 Mar, 2015 [facility] [place] [address], [place] [address]- 4983 28 Mar, 2015 [facility] [place] [address], [place] [address]- 2727 Mar, Ankylosing spondylitis 720.0 and Anxiety 300.00 [facility] [place] [address] [id number], [place] [address]- 0674 Oct, [facility] [place] [id number] [place] [address] 96111- 5812 Oct, [facility] [place] [id number] [place] [address] 62434- 5727 Apr, [facility] [place] [address] [place] [address] 43089- 3023 Sep, [facility] [place] [address], [place] [address]- 6299 Apr, IMMUNIZATIONS No Known Immunizations SOCIAL HISTORY Never Assessed REASON FOR VISIT Requests return call PLAN OF CARE VITAL SIGNS MEDICATIONS Unknown [...]
--- OUTSIDE RECORDS SUMMARY | 2018-04-20 08:34 | XMS REPORT ---
Author Author NAJMA BLANTON Organization [facility] Address [address] [place] [address] Care Team Providers Care Sprayer Automatic Spray Machine Name Role Phone NAJMA BLANTON Unavailable PROBLEMS Type Condition ICD9-CM Code [id number] Code Onset Dates Condition Status SNOMED Code Problem Encounter for attention to tracheostomy Z43.0 Active 567900042 Problem Opioid use disorder, severe, dependence F11.20 Active 18840670 Problem Anxiety 300.00 Active 21870294 Problem Ankylosing spondylitis M45.9 Active 0615697 Problem Anxiety disorder, unspecified F41.9 Active 898634620 Problem Ankylosing spondylitis of multiple sites in spine M45.0 Active 6093160 ALLERGIES No Information ENCOUNTERS Encounter Location Date Diagnosis [facility] [id number] [place] [address] 62654- 2793 Jan, [facility] [id number] [place] [address] 41115- 8284 Jan, Encounter for attention to tracheostomy Z43.0 [facility] [id number] [place] [address] 67523- 0487 Jan, [facility] [id number] [place] [address] 72457 -1276 Jan, [facility] [id number] [place] [address] 35989- 9417 Jan, [facility] [address] [address]- 0192 Jan, [facility] [id number] [place] [address] 33718- 8379 Dec, [facility] [id number] [place] [address] 43116- 0235 Dec, Ankylosing spondylitis M45.9 [facility] [address] [facility] [id number], [place] [address] 6146 Dec, [facility] [address] [facility] [id number], [place] [address]- 4086 Dec, [facility] [address] [facility] [id number], [place] [address]- 9686 Dec, Ankylosing spondylitis M45.9 [facility] [address] [facility] [id number], [place] [address]- 7756 Dec, Ankylosing spondylitis M45.9 [facility] [address] [facility] [id number] [place] [address]- 7846 Dec, [facility] [address] [facility] [id number], [place] [address]- 9626 Dec, [facility] [address], [place] [address] 5876 Dec, [facility] [address] [facility] [id number], [place] [address]- 5212 Dec, Ankylosing spondylitis M45.9 [facility] [address] [facility] [id number], [place] [address]- 4526 Dec, Ankylosing spondylitis M45.9 [facility] [id number] [address] 7256 Dec, Ankylosing spondylitis M45.9 [facility] [address] [facility] [id number], [place] [address] 2546 Dec, Ankylosing spondylitis M45.9 [facility] [address] [id number] [address] 1466 November, Ankylosing spondylitis M45.9 [facility] [address] [facility] [id number], [place] [address]- 4430 November, Ankylosing spondylitis M45.9 ; Closed fracture of one rib of right side, initial encounter S22.31XA and Closed fracture of right wrist, initial encounter S62.101A [facility] [address] [place] [address] 57339- 0001 November, [facility] [id number] [place] [address] 35077- 1474 Oct, [facility] [id number] [place] [address] 60923- 9029 Oct, Anxiety disorder, unspecified F41.9 ; Ankylosing spondylitis of multiple sites in spine M45.0 ; Ankylosing spondylitis M45.9 and Opioid use disorder, severe, dependence F11.20 [facility] [id number] [place] [address] 42414- 4488 Oct, Ankylosing spondylitis M45.9 and Anxiety disorder, unspecified F41.9 [facility] [id number] [place] [address] 11502- 3252 Oct, Ankylosing spondylitis of multiple sites in spine M45.0 [facility] [id number] [place] [address] 93111- 4792 Oct, Ankylosing spondylitis of multiple sites in spine M45.0 [facility] [id number] [place] [address] 33038- 6218 Oct, Ankylosing spondylitis of multiple sites in spine M45.0 [facility] [id number] [address]- 4768 Sep, [facility] [id number] [place] [address] 31114- 8105 Sep, Ankylosing spondylitis of multiple sites in spine M45.0 [facility] [id number] [place] [address] 30289- 1988 Aug, Ankylosing spondylitis of multiple sites in spine M45.0 [facility] [id number] [place] [address] 89943- 9200 Jul, Ankylosing spondylitis of multiple sites in spine M45.0 [facility] [address], [place] [address]- 8036 13 Jun, 2017 Ankylosing spondylitis of multiple sites in spine M45.0 [facility] [address], [place] [address]- 6706 15 May, 2017 Ankylosing spondylitis of multiple sites in spine M45.0 [facility] [id number] [address]- 7291 14 May, 2017 [facility] [address], [place] [address]- 1617 Apr, Ankylosing spondylitis of multiple sites in spine M45.0 and Cellulitis of leg, right L03.115 [facility] [address], [place] [address]- 2581 Apr, Ankylosing spondylitis of multiple sites in spine M45.0 [facility] [address], [place] [address]- 6446 22 Mar, 2017 Ankylosing spondylitis of multiple sites in spine M45.0 [facility] [address], [place] [address]- 8418 09 Apr, 2015 [facility] [address], [place] [address]- 1788 08 Apr, 2015 Ankylosing spondylitis M45.9 [facility] [address], [place] [address]- 0060 07 Apr, 2015 Ankylosing spondylitis M45.9 [facility] [address] 9686 Apr, [facility] [address] 8986 30 Mar, 2015 [facility] [address], [place] [address]- 0896 28 Mar, 2015 [facility] [address], [place] [address]- 2546 Mar, Ankylosing spondylitis 720.0 and Anxiety 300.00 [facility] [address], [place] [address]- 4666 Oct, [facility] [id number], [place] [address]- 1782 Oct, [facility] [id number] [address]- 3259 Apr, [facility] [address], [place] [address]- 2020 Sep, [facility] [address], [place] [address]- 8172 Apr, IMMUNIZATIONS No Known Immunizations SOCIAL HISTORY Never Assessed REASON FOR VISIT Controlled Med Refill-taper #2 PLAN OF CARE VITAL SIGNS MEDICATIONS Medication [...]
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
--- OUTSIDE RECORDS SUMMARY | 2018-04-20 08:34 | XMS REPORT ---
Author Author NAJMA BLANTON Organization [facility] Address [address] [place] [address] Care Team Providers Care Consumer Lending Manager Name Role Phone NAJMA BLANTON Unavailable PROBLEMS Type Condition ICD9-CM Code XDB78-RB Code Onset Dates Condition Status SNOMED Code Problem Encounter for attention to tracheostomy Z43.0 Active 377487458 Problem Opioid use disorder, severe, dependence F11.20 Active 76188150 Problem Anxiety 300.00 Active 89242936 Problem Ankylosing spondylitis M45.9 Active 2831650 Problem Anxiety disorder, unspecified F41.9 Active 615663344 Problem Ankylosing spondylitis of multiple sites in spine M45.0 Active 8655959 ALLERGIES No Information ENCOUNTERS Encounter Location Date Diagnosis [facility] [id number] [place] [address] 72544- 2691 Jan, [facility] [id number] [place] [address] 65398- 7857 Jan, Encounter for attention to tracheostomy Z43.0 [facility] [id number] [place] [address] 75616- 1103 Jan, [facility] [id number] [place] [address] 55893 -7152 Jan, [facility] [id number] [place] [address] 40390- 5810 Jan, [facility] [address] 84480- 0025 Jan, [facility] [id number] [place] [address] 30624- 1199 Dec, [facility] [id number] [place] [address] 05578- 9966 Dec, Ankylosing spondylitis M45.9 [facility] [address] [facility] [id number] [address]- 6466 Dec, [facility] [address] [facility] [id number] [address]- 5256 Dec, [facility] [address] [facility] [id number], [place] [address]- 5186 Dec, Ankylosing spondylitis M45.9 [facility] [address] [facility] [id number], [place] [address]- 8976 Dec, Ankylosing spondylitis M45.9 [facility] [address] [facility] [id number] [place] [address]- 8816 Dec, [facility] [address] [facility] [id number] [address]- 8316 Dec, [facility] [address] [address]- 1436 Dec, [facility] [address] [facility] [id number], [place] [address]- 9943 Dec, Ankylosing spondylitis M45.9 [facility] [address] [facility] [id number] [address]- 7126 Dec, Ankylosing spondylitis M45.9 [facility] [address] [id number] [address]- 3176 Dec, Ankylosing spondylitis M45.9 [facility] [address] [facility] [id number], [place] [address] 2546 Dec, Ankylosing spondylitis M45.9 [facility] [address] [id number] [address]- 6676 November, Ankylosing spondylitis M45.9 [facility] [address] [facility] [id number], [place] [address]- 4294 November, Ankylosing spondylitis M45.9 ; Closed fracture of one rib of right side, initial encounter S22.31XA and Closed fracture of right wrist, initial encounter S62.101A [facility] [address] [place] [address] 96814- 6803 November, [facility] [id number] [place] [address] 07112- 7910 Oct, [facility] [address] [place] [address] 94568- 2738 Oct, Anxiety disorder, unspecified F41.9 ; Ankylosing spondylitis of multiple sites in spine M45.0 ; Ankylosing spondylitis M45.9 and Opioid use disorder, severe, dependence F11.20 [facility] [address] [place] [address] 15318- 2502 Oct, Ankylosing spondylitis M45.9 and Anxiety disorder, unspecified F41.9 [facility] [address] [place] [address] 29951- 5307 Oct, Ankylosing spondylitis of multiple sites in spine M45.0 [facility] [address] [place] [address] 84707- 7476 Oct, Ankylosing spondylitis of multiple sites in spine M45.0 [facility] [address] [place] [address] 03576- 0452 Oct, Ankylosing spondylitis of multiple sites in spine M45.0 [facility] [address] [id number] [address]- 8015 Sep, [facility] [address] [place] [address] 18239- 1204 Sep, Ankylosing spondylitis of multiple sites in spine M45.0 [facility] [address] [place] [address] 90032- 7769 Aug, Ankylosing spondylitis of multiple sites in spine M45.0 [facility] [address] [place] [address] 87869- 3780 Jul, Ankylosing spondylitis of multiple sites in spine M45.0 [facility] [address] [address]- 5426 13 Jun, 2017 Ankylosing spondylitis of multiple sites in spine M45.0 [facility] [address] [address]- 1636 15 May, 2017 Ankylosing spondylitis of multiple sites in spine M45.0 [facility] [address] [id number] [address]- 3579 14 May, 2017 [facility] [address], [place] [address]- 1302 Apr, Ankylosing spondylitis of multiple sites in spine M45.0 and Cellulitis of leg, right L03.115 [facility] [address] [address]- 6283 Apr, Ankylosing spondylitis of multiple sites in spine M45.0 [facility] [address] [address]- 0231 22 Mar, 2017 Ankylosing spondylitis of multiple sites in spine M45.0 [facility] [address] [address]- 8292 09 Apr, 2015 [facility] [address] [address]- 2067 08 Apr, 2015 Ankylosing spondylitis M45.9 [facility] [address] [address]- 0693 07 Apr, 2015 Ankylosing spondylitis M45.9 [facility] [address] 6806 Apr, [facility] [address]- 9126 30 Mar, 2015 [facility] [address] [address]- 6886 28 Mar, 2015 [facility] [address], [place] [address]- 2546 Mar, Ankylosing spondylitis 720.0 and Anxiety 300.00 [facility] [address] [address]- 0109 Oct, [facility] [address] [address]- 6347 Oct, [facility] [address] [place] [address] 63305- 3264 Apr, [facility] [address] [address]- 1288 Sep, [facility] [address], [place] [address]- 5792 Apr, IMMUNIZATIONS No Known Immunizations SOCIAL HISTORY Never Assessed REASON FOR VISIT MS Contin Rx PLAN OF CARE VITAL SIGNS MEDICATIONS Medication Instructions Dosage Frequency Start Date End Date Duration Status MS Contin 30 MG Orally in the morning; 1 tablet orally in the evening 2 tablets November, 07 days Active RESULTS No Results [...]
--- OUTSIDE RECORDS SUMMARY | 2018-04-20 08:34 | XMS REPORT ---
Author Author NAJMA BLANTON Organization [facility] Address [address] [place] [address] Care Team Providers Care Oven Builder Name Role Phone NAJMA BLANTON Unavailable PROBLEMS Type Condition ICD9-CM Code KWD87-CM Code Onset Dates Condition Status SNOMED Code Problem Encounter for attention to tracheostomy Z43.0 Active 849706262 Problem Opioid use disorder, severe, dependence F11.20 Active 15968914 Problem Anxiety 300.00 Active 45439310 Problem Ankylosing spondylitis M45.9 Active 8670076 Problem Anxiety disorder, unspecified F41.9 Active 011019953 Problem Ankylosing spondylitis of multiple sites in spine M45.0 Active 9288890 ALLERGIES No Information ENCOUNTERS Encounter Location Date Diagnosis [facility] [id number] [place] [address] 26264- 6661 Jan, [facility] [id number] [place] [address] 64572- 1542 Jan, Encounter for attention to tracheostomy Z43.0 [facility] [id number] [place] [address] 98450- 7607 Jan, [facility] [id number] [place] [address] 55828 -3201 Jan, [facility] [id number] [place] [address] 66919- 0315 Jan, [facility] [address] 26765- 4113 Jan, [facility] [id number] [place] [address] 87653- 1039 Dec, [facility] [id number] [place] [address] 06279- 8505 Dec, Ankylosing spondylitis M45.9 [facility] [address] [facility] [id number], [place] [address] 4806 Dec, [facility] [address] [facility] [id number], [place] [address]- 8976 Dec, [facility] [address] [facility] [id number], [place] [address]- 1296 Dec, Ankylosing spondylitis M45.9 [facility] [address] [facility] [id number], [place] [address]- 1176 Dec, Ankylosing spondylitis M45.9 [facility] [address] [facility] [id number] [place] [address]- 5786 Dec, [facility] [address] [facility] [id number], [place] [address]- 8166 Dec, [facility] [address] [address]- 8026 Dec, [facility] [address] [facility] [id number], [place] [address]- 7065 Dec, Ankylosing spondylitis M45.9 [facility] [address] [facility] [id number], [place] [address]- 4186 Dec, Ankylosing spondylitis M45.9 [facility] [address] [id number], [place] [address]- 5626 Dec, Ankylosing spondylitis M45.9 [facility] [address] [facility] [id number], [place] [address] 2546 Dec, Ankylosing spondylitis M45.9 [facility] [address] [id number], [place] [address]- 4706 November, Ankylosing spondylitis M45.9 [facility] [address] [facility] [id number], [place] [address]- 8612 November, Ankylosing spondylitis M45.9 ; Closed fracture of one rib of right side, initial encounter S22.31XA and Closed fracture of right wrist, initial encounter S62.101A [facility] [address] [place] [address] 29929- 3287 November, [facility] [id number] [place] [address] 64209- 4330 Oct, [facility] [id number] [place] [address] 79107- 7024 Oct, Anxiety disorder, unspecified F41.9 ; Ankylosing spondylitis of multiple sites in spine M45.0 ; Ankylosing spondylitis M45.9 and Opioid use disorder, severe, dependence F11.20 [facility] [id number] [place] [address] 97996- 9613 Oct, Ankylosing spondylitis M45.9 and Anxiety disorder, unspecified F41.9 [facility] [id number] [place] [address] 65652- 6005 Oct, Ankylosing spondylitis of multiple sites in spine M45.0 [facility] [id number] [place] [address] 88155- 8659 Oct, Ankylosing spondylitis of multiple sites in spine M45.0 [facility] [id number] [place] [address] 41541- 4174 Oct, Ankylosing spondylitis of multiple sites in spine M45.0 [facility] [address] [id number] [address]- 0613 Sep, [facility] [id number] [place] [address] 80010- 8852 Sep, Ankylosing spondylitis of multiple sites in spine M45.0 [facility] [id number] [place] [address] 23368- 4411 Aug, Ankylosing spondylitis of multiple sites in spine M45.0 [facility] [id number] [place] [address] 53558- 6208 Jul, Ankylosing spondylitis of multiple sites in spine M45.0 [facility] [address], [place] [address]- 7126 13 Jun, 2017 Ankylosing spondylitis of multiple sites in spine M45.0 [facility] [address], [place] [address]- 8076 15 May, 2017 Ankylosing spondylitis of multiple sites in spine M45.0 [facility] [id number] [address]- 9427 14 May, 2017 [facility] [address], [place] [address]- 2703 Apr, Ankylosing spondylitis of multiple sites in spine M45.0 and Cellulitis of leg, right L03.115 [facility] [address], [place] [address]- 0056 Apr, Ankylosing spondylitis of multiple sites in spine M45.0 [facility] [address], [place] [address]- 4259 22 Mar, 2017 Ankylosing spondylitis of multiple sites in spine M45.0 [facility] [address], [place] [address]- 7378 09 Apr, 2015 [facility] [address], [place] [address]- 1572 08 Apr, 2015 Ankylosing spondylitis M45.9 [facility] [address], [place] [address]- 4443 07 Apr, 2015 Ankylosing spondylitis M45.9 [facility] [address] 4776 Apr, [facility] [address] 9506 30 Mar, 2015 [facility] [address], [place] [address]- 8816 28 Mar, 2015 [facility] [address], [place] [address]- 9255 Mar, Ankylosing spondylitis 720.0 and Anxiety 300.00 [facility] [address] [address] 2277 Oct, [facility] [address] 8483 Oct, [facility] [id number] [place] [address] 387776- 1337 Apr, [facility] [address], [place] [address]- 5515 Sep, [facility] [address], [place] [address]- 0599 Apr, IMMUNIZATIONS No Known Immunizations SOCIAL HISTORY [...]
--- OUTSIDE RECORDS SUMMARY | 2018-04-20 08:35 | XMS REPORT ---
Author Author NAJMA BLANTON Organization [facility] Address [address] [place] [address] Care Team Providers Care Ortho Nurse Name Role Phone NAJMA BLANTON Unavailable PROBLEMS Type Condition ICD9-CM Code OJM80-WW Code Onset Dates Condition Status SNOMED Code Problem Opioid use disorder, severe, dependence F11.20 Active 89184011 Problem Anxiety disorder, unspecified F41.9 Active 953539749 Problem Ankylosing spondylitis M45.9 Active 3878713 Problem Ankylosing spondylitis of multiple sites in spine M45.0 Active 7747902 Problem Anxiety 300.00 Active 71839525 ALLERGIES No Information ENCOUNTERS Encounter Location Date Diagnosis [facility] [id number] [place] [address] 17364- 6830 Feb, [facility] [id number] [place] [address] 44609- 9148 Jan, [facility] [id number] [place] [address] 86072 -7257 Jan, [facility] [id number] [place] [address] 14390- 5093 Jan, [facility] [id number] [place] [address] 41921- 6013 Jan, [facility] [id number] [place] [address] 16710- 4117 Dec, [facility] [id number] [place] [address] 27049- 9081 Dec, Ankylosing spondylitis M45.9 [facility] [id number] [place] [address] 66425- 8169 Dec, [facility] [id number] [place] [address] [place] [address]- 3455 15 Dec, 2017 [facility] [address], [place] [address]- 8179 14 Dec, 2017 Ankylosing spondylitis M45.9 [facility] [address], [place] [address]- 1876 08 Dec, 2017 Ankylosing spondylitis M45.9 [facility] [id number] [place] [address] 21936- 9916 07 Dec, 2017 [facility] [address], [place] [address]- 8369 Dec, [facility] [id number] [place] [address] 20297- 4979 Dec, [facility] [id number] [place] [address] 88004- 0201 Dec, Ankylosing spondylitis M45.9 [facility] [address], [place] [address]- 4762 Dec, Ankylosing spondylitis M45.9 [facility] [address], [place] [address]- 8322 Dec, Ankylosing spondylitis M45.9 [facility] [address], [place] [address]- 7601 Dec, Ankylosing spondylitis M45.9 [facility] [address], [place] [address]- 8063 November, Ankylosing spondylitis M45.9 [facility] [address], [place] [address]- 4904 November, Ankylosing spondylitis M45.9 ; Closed fracture of one rib of right side, initial encounter S22.31XA and Closed fracture of right wrist, initial encounter S62.101A [facility] [address], [place] [address]- 3036 November, [facility] [address], [place] [address]- 1522 Oct, [facility] [address], [place] [address]- 6643 Oct, Anxiety disorder, unspecified F41.9 ; Ankylosing spondylitis of multiple sites in spine M45.0 ; Ankylosing spondylitis M45.9 and Opioid use disorder, severe, dependence F11.20 [facility] [id number] [address]- 2536 Oct, Ankylosing spondylitis M45.9 and Anxiety disorder, unspecified F41.9 [facility] [address], [place] [address]- 0928 Oct, Ankylosing spondylitis of multiple sites in spine M45.0 [facility] [address], [place] [address]- 1255 Oct, Ankylosing spondylitis of multiple sites in spine M45.0 [facility] [address], [place] [address]- 3374 Oct, Ankylosing spondylitis of multiple sites in spine M45.0 [facility] [address], [place] [address]- 9037 Sep, [facility] [address], [place] [address]- 0011 Sep, Ankylosing spondylitis of multiple sites in spine M45.0 [facility] [address], [place] [address]- 0422 Aug, Ankylosing spondylitis of multiple sites in spine M45.0 [facility] [address], [place] [address]- 1946 Jul, Ankylosing spondylitis of multiple sites in spine M45.0 [facility] [id number] [address]- 6546 Jun, Ankylosing spondylitis of multiple sites in spine M45.0 [facility] [address], [place] [address]- 3325 15 May, 2017 Ankylosing spondylitis of multiple sites in spine M45.0 [facility] [id number] [place] [address] 87851- 7926 14 May, 2017 [facility] [id number] [place] [address] 89628- 9214 20 Apr, 2017 Ankylosing spondylitis of multiple sites in spine M45.0 and Cellulitis of leg, right L03.115 [facility] [id number] [place] [address] 19501- 4579 19 Apr, 2017 Ankylosing spondylitis of multiple sites in spine M45.0 [facility] [id number] [place] [address] 50573- 4097 22 Mar, 2017 Ankylosing spondylitis of multiple sites in spine M45.0 [facility] [id number] [place] [address] 14426- 4836 09 Apr, 2015 [facility] [id number] [place] [address] 05145- 2954 08 Apr, 2015 Ankylosing spondylitis M45.9 [facility] [id number] [place] [address] 88626- 6386 07 Apr, 2015 Ankylosing spondylitis M45.9 [facility] [address], [place] [address]- 1826 Apr, [facility] [address], [place] [address] 2546 30 Mar, 2015 [facility] [id number] [place] [address] 42983- 5096 28 Mar, 2015 [facility] [id number] [place] [address] 39842- 2546 25 Mar, 2015 Ankylosing spondylitis 720.0 and Anxiety 300.00 [facility] [id number] [place] [address] 86264- 1589 Oct, [facility] [address] [facility] [id number] [place] [address]- 6147 Oct, [facility] [id number] [address] 2546 Apr, [facility] [address] [facility] [id number], [place] [address]- 8708 Sep, [facility] [id number], [place] [address]- 5358 Apr, IMMUNIZATIONS No Known Immunizations SOCIAL HISTORY [...]
--- OUTSIDE RECORDS SUMMARY | 2018-04-20 08:35 | XMS REPORT ---
Author Author NAJMA BLANTON Organization [facility] Address [address] [place] [address] Care Team Providers Care Sausage Stringer Name Role Phone NAJMA BLANTON Unavailable PROBLEMS Type Condition ICD9-CM Code MIU23-CS Code Onset Dates Condition Status SNOMED Code Problem Encounter for attention to tracheostomy Z43.0 Active 531666500 Problem Opioid use disorder, severe, dependence F11.20 Active 29900107 Problem Anxiety 300.00 Active 86357776 Problem Ankylosing spondylitis M45.9 Active 5025080 Problem Anxiety disorder, unspecified F41.9 Active 625542146 Problem Ankylosing spondylitis of multiple sites in spine M45.0 Active 5719581 ALLERGIES No Information ENCOUNTERS Encounter Location Date Diagnosis [facility] [address] [place] [address] 47594- 7996 Feb, [facility] [id number] [place] [address] 21538- 0737 Jan, [facility] [id number] [place] [address] 85827- 0901 Jan, Encounter for attention to tracheostomy Z43.0 [facility] [id number] [place] [address] 89979- 5760 Jan, [facility] [address] [place] [address] 82348 -1158 Jan, [facility] [id number] [place] [address] 96397- 2410 Jan, [facility] [id number] [place] [address] 17505- 1131 Jan, [facility] [id number] [place] [address] 25512- 6279 Dec, [facility] [place] [facility] [address] [facility] [address] [id number], [place] [address]- 7106 Dec, Ankylosing spondylitis M45.9 [facility] [place] [facility] [address] [id number] [place] [address] 2546 Dec, [facility] [place] [facility] [address] [id number] [place] [address]- 9086 Dec, [facility] [place] [facility] [address] [id number], [place] [address]- 7036 14 Dec, 2017 Ankylosing spondylitis M45.9 [facility] [place] [facility] [address] [id number] [place] [address]- 7436 08 Dec, 2017 Ankylosing spondylitis M45.9 [facility] [place] [facility] [address] [id number], [place] [address]- 8076 Dec, [facility] [place] [facility] [address] [id number], [place] [address]- 3045 Dec, [facility] [place] [facility] [address] [id number], [place] [address]- 2062 Dec, [facility] [place] [facility] [address] [id number], [place] [address] 2544 Dec, Ankylosing spondylitis M45.9 [facility] [place] [facility] [address] [id number], [place] [address]- 8036 Dec, Ankylosing spondylitis M45.9 [facility] [place] [facility] [address] [id number], [place] [address] 2546 Dec, Ankylosing spondylitis M45.9 [facility] [place] [facility] [address] [id number], [place] [address]- 8196 Dec, Ankylosing spondylitis M45.9 [facility] [place] [facility] [address] [id number], [place] [address]- 4266 November, Ankylosing spondylitis M45.9 [facility] [place] [facility] [address] [id number], [place] [address]- 8222 November, Ankylosing spondylitis M45.9 ; Closed fracture of one rib of right side, initial encounter S22.31XA and Closed fracture of right wrist, initial encounter S62.101A [facility] [address], [place] [address]- 1244 November, [facility] [address] [place] [address] 87671- 4575 Oct, [facility] [address] [place] [address] 53801- 7859 Oct, Anxiety disorder, unspecified F41.9 ; Ankylosing spondylitis of multiple sites in spine M45.0 ; Ankylosing spondylitis M45.9 and Opioid use disorder, severe, dependence F11.20 [facility] [address], [place] [address]- 8635 Oct, Ankylosing spondylitis M45.9 and Anxiety disorder, unspecified F41.9 [facility] [address] [place] [address] 69002- 0027 Oct, Ankylosing spondylitis of multiple sites in spine M45.0 [facility] [address] [place] [address] 35806- 9082 Oct, Ankylosing spondylitis of multiple sites in spine M45.0 [facility] [address], [place] [address]- 6175 Oct, Ankylosing spondylitis of multiple sites in spine M45.0 [facility] [address], [place] [address]- 1424 Sep, [facility] [id number] [place] [address] 44697- 7836 Sep, Ankylosing spondylitis of multiple sites in spine M45.0 [facility] [address], [place] [address]- 6936 Aug, Ankylosing spondylitis of multiple sites in spine M45.0 [facility] [address], [place] [address]- 8832 Jul, Ankylosing spondylitis of multiple sites in spine M45.0 [facility] [address], [place] [address]- 5866 13 Jun, 2017 Ankylosing spondylitis of multiple sites in spine M45.0 [facility] [address] [place] [address] 96869- 2696 15 May, 2017 Ankylosing spondylitis of multiple sites in spine M45.0 [facility] [address], [place] [address]- 6546 14 May, 2017 [facility] [address] [place] [address] 44814- 2886 Apr, Ankylosing spondylitis of multiple sites in spine M45.0 and Cellulitis of leg, right L03.115 [facility] [id number] [place] [address] Apr, Ankylosing spondylitis of multiple sites in spine M45.0 [facility] [place] [id number] [place] [address] Mar, Ankylosing spondylitis of multiple sites in spine M45.0 [facility] [place] [id number] [address] 09 Apr, 2015 [facility] [place] [id number] [address] Apr, Ankylosing spondylitis M45.9 [facility] [place] [id number] [address] Apr, Ankylosing spondylitis M45.9 [facility] [place] [id number] [address] Apr, [facility] [place] [id number], [place] [address] 30 Mar, 2015 [facility] [place] [id number] [place] [address] Mar, [facility] [place] [id number] [address] Mar, Ankylosing spondylitis 720.0 and Anxiety 300.00 [facility] [place] [id number] [address] Oct, [facility] [place] [id number] [id number] Oct, [facility] [place] [id number] [address] Apr, [facility] [place] [id number] [address] Sep, [facility] [place] [id number] [address] Apr, IMMUNIZATIONS No Known Immunizations SOCIAL HISTORY Never Assessed REASON FOR VISIT Controlled Med Refill 10/31 PLAN OF CARE VITAL SIGNS MEDICATIONS Medication Instructions Dosage Frequency Start Date End Date Duration Status Oxycodone HCl 20 mg Orally every 6 hrs 1 tablet as needed 6h Oct, 17 days Active Morphine Sulfate ER 60 mg Orally every 12 hrs 1 tablet 12h Oct, 17 days Active RESULTS No Results PROCEDURES No [...]
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
--- OUTSIDE RECORDS SUMMARY | 2018-04-20 08:35 | XMS REPORT ---
Author Author NAJMA BLANTON Organization [facility] Address [address] [place] [address] Care Team Providers Care Acquisition Editor Name Role Phone NAJMA BLANTON Unavailable PROBLEMS Type Condition ICD9-CM Code NJE70-AH Code Onset Dates Condition Status SNOMED Code Problem Encounter for attention to tracheostomy Z43.0 Active 968366477 Problem Opioid use disorder, severe, dependence F11.20 Active 30520556 Problem Anxiety 300.00 Active 78949260 Problem Ankylosing spondylitis M45.9 Active 8479437 Problem Anxiety disorder, unspecified F41.9 Active 519528690 Problem Ankylosing spondylitis of multiple sites in spine M45.0 Active 8406758 ALLERGIES No Information ENCOUNTERS Encounter Location Date Diagnosis [facility] [address] [place] [address] 53340- 7884 Feb, [facility] [id number] [place] [address] 68508- 5711 Jan, [facility] [id number] [place] [address] 17771- 0469 Jan, Encounter for attention to tracheostomy Z43.0 [facility] [id number] [place] [address] 71418- 7756 Jan, [facility] [address] [place] [address] 57888 -7353 Jan, [facility] [id number] [place] [address] 19338- 2437 Jan, [facility] [id number] [place] [address] 65145- 0938 Jan, [facility] [id number] [place] [address] 50645- 9343 Dec, [facility] [place] [facility] [address] [facility] [id number], [place] [address]- 3386 Dec, Ankylosing spondylitis M45.9 [facility] [place] [facility] [address] [facility] [id number] [place] [address] 2546 Dec, [facility] [place] [facility] [address] [facility] [id number] [place] [address]- 3116 Dec, [facility] [place] [facility] [address] [facility] [id number], [place] [address]- 1206 14 Dec, 2017 Ankylosing spondylitis M45.9 [facility] [place] [facility] [address] [facility] [id number] [place] [address]- 2916 08 Dec, 2017 Ankylosing spondylitis M45.9 [facility] [place] [facility] [address] [facility] [id number], [place] [address]- 6136 Dec, [facility] [place] [facility] [address] [facility] [id number], [place] [address]- 6292 Dec, [facility] [place] [facility] [address] [facility] [id number], [place] [address]- 2916 Dec, [facility] [place] [facility] [address] [facility] [id number], [place] [address] 2543 Dec, Ankylosing spondylitis M45.9 [facility] [place] [facility] [address] [facility] [id number], [place] [address]- 0246 Dec, Ankylosing spondylitis M45.9 [facility] [place] [facility] [address] [facility] [id number], [place] [address] 2546 Dec, Ankylosing spondylitis M45.9 [facility] [place] [facility] [address] [facility] [id number], [place] [address]- 6216 Dec, Ankylosing spondylitis M45.9 [facility] [place] [facility] [address] [facility] [id number], [place] [address]- 2916 November, Ankylosing spondylitis M45.9 [facility] [place] [facility] [address] [facility] [id number], [place] [address]- 1605 November, Ankylosing spondylitis M45.9 ; Closed fracture of one rib of right side, initial encounter S22.31XA and Closed fracture of right wrist, initial encounter S62.101A [facility] [address] [address]- 4037 November, [facility] [address] [place] [address] 78013- 9266 Oct, [facility] [address] [place] [address] 10224- 4088 Oct, Anxiety disorder, unspecified F41.9 ; Ankylosing spondylitis of multiple sites in spine M45.0 ; Ankylosing spondylitis M45.9 and Opioid use disorder, severe, dependence F11.20 [facility] [address] [address]- 5447 Oct, Ankylosing spondylitis M45.9 and Anxiety disorder, unspecified F41.9 [facility] [address] [place] [address] 76314- 5763 Oct, Ankylosing spondylitis of multiple sites in spine M45.0 [facility] [address] [place] [address] 77470- 2491 Oct, Ankylosing spondylitis of multiple sites in spine M45.0 [facility] [address] [address]- 4653 Oct, Ankylosing spondylitis of multiple sites in spine M45.0 [facility] [address], [place] [address]- 4372 Sep, [facility] [id number] [place] [address] 08605- 4503 Sep, Ankylosing spondylitis of multiple sites in spine M45.0 [facility] [address] [address]- 3747 Aug, Ankylosing spondylitis of multiple sites in spine M45.0 [facility] [address], [place] [address]- 8243 Jul, Ankylosing spondylitis of multiple sites in spine M45.0 [facility] [address], [place] [address]- 2426 13 Jun, 2017 Ankylosing spondylitis of multiple sites in spine M45.0 [facility] [address] [place] [address] 21514- 8476 15 May, 2017 Ankylosing spondylitis of multiple sites in spine M45.0 [facility] [address], [place] [address]- 5206 14 May, 2017 [facility] [address] [place] [address] 15571- 1636 Apr, Ankylosing spondylitis of multiple sites in spine M45.0 and Cellulitis of leg, right L03.115 [facility] [address] [place] [address] 17838- 1758 Apr, Ankylosing spondylitis of multiple sites in spine M45.0 [facility] [address] [place] [address] 90466- 7149 Mar, Ankylosing spondylitis of multiple sites in spine M45.0 [facility] [address], [place] [address]- 1776 09 Apr, 2015 [facility] [address], [place] [address]- 7096 Apr, Ankylosing spondylitis M45.9 [facility] [id number] [address] 2546 Apr, Ankylosing spondylitis M45.9 [facility] [id number] 8156 Apr, [facility] [id number] [address]- 9466 30 Mar, 2015 [facility] [address], [place] [address]- 3008 Mar, [facility] [address]- 2476 Mar, Ankylosing spondylitis 720.0 and Anxiety 300.00 [facility] [address], [place] [address]- 7512 Oct, [facility] [id number] 0519 Oct, [facility] [address] 7186 Apr, [facility] [address]- 7520 Sep, [facility] [address] [address]- 3548 Apr, IMMUNIZATIONS No Known Immunizations SOCIAL HISTORY Never Assessed REASON FOR VISIT Rx resend PLAN OF CARE VITAL SIGNS MEDICATIONS Medication [...]
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
[2018-04-20] MEDS ORDERED: MELO15TA39 PO (08:41)
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
[2018-04-20 11:56] VITALS: BP 0/0
== END 2018-04-20 10:29 | disposition home or self-care (01) ==
LOC: EDUNIT# 08:26 → ER 08:27
DX: K94.23 Gastrostomy malfunction (principal); F17.210 Nicotine dependence, cigarettes, uncomplicated; Z88.6 Allergy status to analgesic agent
CPT/HCPCS: 99281